=== PATIENT | female | born 1975 | race African-American/Black ===

== ENCOUNTER 2018-03-25 22:12 | Emergency (ER) | payer OTHER ==
--- NOTE | 2018-03-25 22:39 | EDPHYS ---
Physician Documentation [facility] Name: Neida Malhotra Age: 43 yrs Sex: Female : 1975 Arrival Date: 03/25/2018 Time: 22:15 Bed 30 Private MD: ED Physician Reynaldo Foreman HPI: 03/26 00:37 This 43 yrs old Black Female presents to ER via Wheelchair with complaints of Back Pain.snw 00:37 The patient presents with pain that is acute, that is chronic, with no known mechanism snw of injury. The symptoms are located in the low back. Onset: The symptoms/episode began/occurred and became persistent. The pain does not radiate. Associated signs and symptoms: Pertinent positives: spasms. Modifying factors: The patient symptoms are alleviated by nothing. Severity of symptoms: At their worst the symptoms were moderate, severe. The patient has experienced similar episodes in the past, chronically. PCP and Pain mgmt, pt took tramadol and norco without relief. 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 - Social history:: Smoking status: Patient/guardian denies using tobacco. ROS: 03/26 00:34 Constitutional: Negative for fever, chills, and weight loss, Eyes: Negative for injury, snw pain, redness, and discharge, ENT: Negative for injury, pain, and discharge, Neck: Negative for injury, pain, and swelling, Cardiovascular: Negative for chest pain, palpitations, and edema, Respiratory: Negative for shortness of breath, cough, wheezing, and pleuritic chest pain, Abdomen/GI: Negative for abdominal pain, nausea, vomiting, diarrhea, and constipation, : Negative for injury, bleeding, discharge, and swelling, MS/Extremity: Negative for injury and deformity, Skin: Negative for injury, rash, and discoloration, Neuro: Negative for headache, weakness, numbness, tingling, and seizure. Back: Positive for pain at rest, pain with movement. Exam: 00:30 Constitutional: This is a well developed, well nourished patient who is awake, alert, snw and in no acute distress. Head/Face: Normocephalic, atraumatic. Eyes: Pupils equal round and reactive to light, extra-ocular motions intact. Lids and lashes normal. Conjunctiva and sclera are non-icteric and not injected. Cornea within normal limits. Periorbital areas with no swelling, redness, or edema. ENT: Nares patent. No nasal discharge, no septal abnormalities noted. Tympanic membranes are normal and external auditory canals are clear. Oropharynx with no redness, swelling, or masses, exudates, or evidence of obstruction, uvula midline. Mucous membranes moist. Neck: Trachea midline, no thyromegaly or masses palpated, and no cervical lymphadenopathy. Supple, full range of motion without nuchal rigidity, or vertebral point tenderness. No Meningismus. Chest/axilla: Normal chest wall appearance and motion. Nontender with no deformity. No lesions are appreciated. Cardiovascular: Regular rate and rhythm with a normal S1 and S2. No gallops, murmurs, or rubs. Normal PMI, no JVD. No pulse deficits. Respiratory: Lungs have equal breath sounds bilaterally, clear to auscultation and percussion. No rales, rhonchi or wheezes noted. No increased work of breathing, no retractions or nasal flaring. Abdomen/GI: Soft, non-tender, with normal bowel sounds. No distension or tympany. No guarding or rebound. No evidence of tenderness throughout. Skin: Warm, dry with normal turgor. Normal color with no rashes, no lesions, and no evidence of cellulitis. MS/ Extremity: Pulses equal, no cyanosis. Neurovascular intact. Full, normal range of motion. Neuro: Awake and alert, GCS 15, oriented to person, place, time, and situation. Cranial nerves II-XII grossly intact. Motor strength 5/5 in all extremities. Sensory grossly intact. Cerebellar exam normal. Normal gait. 00:30 Back: pain, that is moderate, of the lumbar area, left low back and right low back. 00:30 Neuro: Orientation: is normal. Vital Signs: 03/25 22:32 BP 153 / 107; Pulse 85; Resp 18; Temp 98.9(O); Pulse Ox 98% on R/A; Weight 149.23 kg; lp1 Height 5 ft. 2 in. (157.48 cm); Pain 10/10; 23:24 BP 141 / 97; Pulse 82; Resp 18; Pulse Ox 99% on R/A; lp1 22:32 Body Mass Index 60.17 (149.23 kg, 157.48 cm) lp1 MDM: 22:27 Patient medically screened. snw 03/26 00:35 Data reviewed: vital signs, nurses notes. Data interpreted: Pulse oximetry: on room air snw is 99 %. Interpretation: normal. Counseling: I had a detailed discussion with the patient and/or guardian regarding: the historical points, exam findings, and any diagnostic results supporting the discharge/admit diagnosis, the presence of at least one elevated blood pressure reading (>120/80) during this emergency department visit, the need for outpatient follow up, to return to the emergency department if symptoms worsen or persist or if there are any questions or concerns that arise at home. Special discussion: Based on the history and exam findings, there is no indication for further emergent testing or inpatient evaluation. I discussed with the patient/guardian the need to see the primary care provider for further evaluation of the symptoms. Administered Medications: 03/25 22:57 Drug: Decadron 10 mg Route: IM; Site: right deltoid; lp1 23:25 Follow up: Response: No adverse reaction lp1 Disposition: 03/26 14:30 Co-signature as Attending Physician, Reynaldo Foreman MD I agree with the assessment and pardeep plan of care. Disposition: 03/25/18 22:39 Discharged to Home. Impression: Low back pain. - Condition is Stable. - Discharge Instructions: Back Pain, Adult, Hypertension, Musculoskeletal Pain, Back Exercises, [id number], Cryotherapy, Heat Therapy. - Medication Reconciliation Form, Thank You Letter, Antibiotic Education, Prescription Opioid Use form. - Follow up: Private Physician; When: 1 - 2 days; Reason: Recheck today's complaints, Continuance of care, Re-evaluation by your physician. Follow up: Emergency Department; When: As needed; Reason: Worsening of condition. Signatures: Reynaldo Foreman MD MD cha Therrien, Shelly, YARN SORTER-C YARN SORTER-Csnw Luz Bowie, RN RN lp1
--- NOTE | 2018-03-25 22:39 | ER ---
Nurse's Notes [facility] Name: Neida Malhotra Age: 43 yrs Sex: Female : 1975 Arrival Date: 03/25/2018 Time: 22:15 Bed 30 Private MD: Diagnosis: Low back pain Presentation: 03/25 22:30 Presenting complaint: Patient states: Back pain x2 days, worsening on movement; Seen at [facility] 2 days ago and discharged with antibiotics for beginning of UTI. Transition of care: patient was not received from another setting of care. Onset of symptoms was March 23, 2018. Initial Sepsis Screen: Does the patient meet any 2 criteria? No. Patient's initial sepsis screen is negative. Does the patient have a suspected source of infection? No. Patient's initial sepsis screen is negative. Care prior to arrival: None. 22:30 Method Of Arrival: Wheelchair lp1 22:30 Acuity: AIDAN 4 lp1 Triage Assessment: 22:35 General: Appears uncomfortable, Behavior is cooperative. Pain: Complains of pain in lp1 back Pain currently is 10 out of 10 on a pain scale. Pain began 2-3 days ago. Is intermittent, chronic, Aggravated by increased activity, Noted to be grimacing, moaning. EENT: No signs and/or symptoms were reported regarding the EENT system. Neuro: Level of Consciousness is awake, alert, obeys commands. Cardiovascular: Patient's skin is warm and dry. Respiratory: Respiratory effort is even, unlabored. GI: Abdomen is obese. : Denies burning with urination, discharge, urinary frequency. Derm: Skin is intact, Skin is dry, Skin is normal. Musculoskeletal: Circulation, motion, and sensation intact. 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 - Social history:: Smoking status: Patient/guardian denies using tobacco. Screenin:36 Abuse screen: Denies threats or abuse. Denies injuries from another. Nutritional lp1 screening: No deficits noted. Tuberculosis screening: No symptoms or risk factors identified. Fall Risk None identified. Assessment: 22:36 Reassessment: See Triage assessment. lp1 Vital Signs: 22:32 BP 153 / 107; Pulse 85; Resp 18; Temp 98.9(O); Pulse Ox 98% on R/A; Weight 149.23 kg; lp1 Height 5 ft. 2 in. (157.48 cm); Pain 10/10; 23:24 BP 141 / 97; Pulse 82; Resp 18; Pulse Ox 99% on R/A; lp1 22:32 Body Mass Index 60.17 (149.23 kg, 157.48 cm) lp1 ED Course: 22:15 Patient arrived in ED. al2 22:26 Valerie Lopez FNP-C [facility]. snw 22:26 Reynaldo Foreman MD is Attending Physician. snw 22:30 Luz Bowie, ALEX is Primary Nurse. lp1 22:32 Triage completed. lp1 22:32 Arm band placed on left wrist. lp1 22:36 Patient has correct armband on for positive identification. Pulse ox on. NIBP on. lp1 23:25 No provider procedures requiring assistance completed. Patient did not have IV access lp1 during this emergency room visit. Administered Medications: 22:57 Drug: Decadron 10 mg Route: IM; Site: right deltoid; lp1 23:25 Follow up: Response: No adverse reaction lp1 Outcome: 22:39 Discharge ordered by . snw 23:25 Discharged to home ambulatory. lp1 23:25 Condition: good 23:25 Discharge instructions given to patient, Instructed on discharge instructions, follow up and referral plans. Demonstrated understanding of instructions, follow-up care. 23:25 Patient left the ED. lp1 Signatures: Valerie Lopez FNP-C REMEDIATION BIOANALYTICS CONSULTANT-Csnw Bowie, Luz, RN RN lp1 Selena Fofana al2
[2018-03-25] MEDS ORDERED: DEXAMETHASONE 10 MG/ML VIAL ONE (22:52)
== END 2018-03-25 23:25 | disposition home or self-care (01) ==
LOC: ER 22:12
DX: M54.5 Low back pain (principal); I10 Essential (primary) hypertension; E11.9 Type 2 diabetes mellitus without complications; F41.9 Anxiety disorder, unspecified; Z88.0 Allergy status to penicillin
CPT/HCPCS: 96372; 99283; J1100

== ENCOUNTER 2018-12-27 22:39 | Emergency (ER) | payer OTHER ==
--- OUTSIDE RECORDS SUMMARY | 2018-12-27 22:41 | XMS REPORT ---
:1975 [facility] Address [address] [place] [address] [place] [id number] Care Team Providers Name Role Phone Unavailable Unavailable Unavailable Problems This patient has no known problems. Allergies, Adverse Reactions, Alerts This patient has no known allergies or adverse reactions. Medications This patient has no known medications.
--- OUTSIDE RECORDS SUMMARY | 2018-12-27 22:41 | XMS REPORT | Clinical Summary ---
:1975 Author Organization [facility] Address [address] [place] [address] Care Team Providers Name Role Phone Asked, No Pcp Primary Care Provider Unavailable Allergies Active Allergy Reactions Severity Noted Date Comments Penicillins Hives 03/29/2018 Medications Medication Sig Dispensed Refills Start Date End Date Status traMADol (ULTRAM) 50 Take 50 mg by 0 Active mg tablet mouth every 6 (six) hours as needed for moderate pain. pantoprazole Take 1 tablet 30 tablet 0 03/29/2018 04/28/2018 (PROTONIX) 20 MG EC (20 mg total) by tablet mouth daily for 30 days. ondansetron (ZOFRAN) Take 1 tablet (4 20 tablet 0 03/29/2018 04/28/2018 4 MG tablet mg total) by mouth every 8 (eight) hours as needed for nausea or vomiting for up to 30 days. Active Problems Not on file Encounters Date Type Specialty Care Team Description 03/29/2018 Emergency Emergency Medicine Eyal Raya DO Peptic ulcer disease (Primary Dx) after 12/26/2017 Social History Tobacco Use Types Packs/Day Years Used Date Never Smoker Smokeless Tobacco: Never Used Sex Assigned at Date Recorded Not on file Job Start Date Occupation Industry Not on file Not on file Not on file Travel History Travel Start Travel End No recent travel history available. Last Filed Vital Signs Vital Sign Reading Time Taken Blood Pressure 119/62 03/29/2018 10:19 PM CDT Pulse 66 03/29/2018 10:19 PM CDT Temperature - - Respiratory Rate 18 03/29/2018 10:19 PM CDT Oxygen Saturation 98% 03/29/2018 10:19 PM CDT Inhaled Oxygen Concentration - - Weight - - Height 157.5 cm (5' 2") 03/29/2018 7:55 PM CDT Body Mass Index - - Plan of Treatment Health Maintenance Due Date Last Done Comments CERVICAL CANCER SCREENING 02/01/1996 INFLUENZA VACCINE 06/30/2018 Procedures Procedure Name Priority Date/Time Associated Comments Diagnosis URINALYSIS STAT 03/29/2018 9:16 Results for this PM CDT procedure are in the results section. US GALLBLADDER STAT 03/29/2018 9:08 Results for this PM CDT procedure are in the results section. ZZESTIMATED GFR STAT 03/29/2018 8:40 Results for this PM CDT procedure are in the results section. AMYLASE LEVEL STAT 03/29/2018 8:40 Results for this PM CDT procedure are in the results section. LACTIC ACID, I-STAT STAT 03/29/2018 8:40 Results for this PM CDT procedure are in the results section. COMPREHENSIVE STAT 03/29/2018 8:40 Results for this METABOLIC PANEL PM CDT procedure are in the results section. HC COMPLETE BLD COUNT STAT 03/29/2018 8:40 Results for this W/AUTO DIFF PM CDT procedure are in the results section. after 12/26/2017 Results Urinalysis (03/29/2018 9:16 PM CDT) Glucose, UA Negative Negative DEPARTMENT OF PATHOLOGY AND GENOMIC MEDICINE, [facility] Bilirubin, UA Negative Negative DEPARTMENT OF PATHOLOGY AND GENOMIC MEDICINE, [facility] Ketones, UA Negative Negative [facility] Specific gravity, UA 1.020 1.001 - 1.035 [facility] Blood, UA Large (A) Negative DEPARTMENT OF PATHOLOGY AND GENOMIC MEDICINE, [facility] pH, UA 6.5 5.0 - 8.5 DEPARTMENT OF PATHOLOGY AND GENOMIC MEDICINE, [facility] Protein, UA Negative Negative DEPARTMENT OF PATHOLOGY AND GENOMIC MEDICINE, [facility] Urobilinogen, UA <2.0 <2.0 DEPARTMENT OF PATHOLOGY AND GENOMIC MEDICINE, [facility] Nitrite, UA Negative Negative [facility] Leukocyte esterase, UA Trace (A) Negative DEPARTMENT OF PATHOLOGY AND GENOMIC MEDICINE, [facility] Color, UA Yellow DEPARTMENT OF PATHOLOGY AND GENOMIC MEDICINE, [facility] Appearance, UA Clear DEPARTMENT OF PATHOLOGY AND GENOMIC MEDICINE, [facility] Specimen Urine Performing Organization Address [facility]/Zipcode Phone Number DEPARTMENT OF PATHOLOGY AND [address] [place] [address] GENOMIC MEDICINE, [facility] US Gallbladder (03/29/2018 9:08 PM CDT) Narrative Performed At EXAMINATION:US GALLBLADDER [facility] CLINICAL HISTORY:Cholecystitis COMPARISON:None. FINDINGS: Gallbladder: The gallbladder is without evidence of calculi. The gallbladder wall is not thickened and there is no pericholecystic fluid. Positive sonographic Smith sign noted by instrumentation and controls technician. CBD:4.8 mm, within normal limits. Portal vein: The portal vein demonstrates patency. The portal vein measures 1.2 cm. Incidental hepatic steatosis with focal sparing adjacent to the gallbladder. IMPRESSION: 1. Positive sonographic Smith sign noted by instrumentation and controls technician. However, no gallstones are visualized and there is no other sonographic evidence of acute cholecystitis. 2. Hepatic steatosis. [facility]-[id number] Procedure Note Interface, Radiology Results Incoming - 03/29/2018 9:13 PM CDT EXAMINATION: US GALLBLADDER CLINICAL HISTORY: Cholecystitis COMPARISON: None. FINDINGS: Gallbladder: The gallbladder is without evidence of calculi. The gallbladder wall is not thickened and there is no pericholecystic fluid. Positive sonographic Smith sign noted by instrumentation and controls technician. CBD: 4.8 mm, within normal limits. Portal vein: The portal vein demonstrates patency. The portal vein measures 1.2 cm. Incidental hepatic steatosis with focal sparing adjacent to the gallbladder. IMPRESSION: 1. Positive sonographic Smith sign noted by instrumentation and controls technician. However, no gallstones are visualized and there is no other sonographic evidence of acute cholecystitis. 2. Hepatic steatosis. [facility]-[id number] Performing Organization Address City/[facility]/Zipcode Phone Number [facility] [address] [place] [address] Estimated GFR (03/29/2018 8:40 PM CDT) GFR Non Af Amer 68 mL/min/1.73 m2 [facility] GFR Af Amer 83 mL/min/1.73 m2 DEPARTMENT OF PATHOLOGY Comment: AND GENOMIC MEDICINE, Chronic kidney disease: <60 mL/min/1.73m2 [facility] Kidney failure: <15 mL/min/1.73m2 CENTER The estimated GFR is calculated from the IDMS-traceable Modification of Diet in Renal Disease Equation. The accuracy of the calculation is poor when the creatinine is normal. Calculated values >90 mL/min/1.73m2 are not reported. This equation has not been validated in children (<18 years), women, the elderly (>70 years), or ethnic groups other than Caucasians and Americans. Specimen Plasma specimen Performing Organization Address City/State/Zipcode Phone Number DEPARTMENT OF PATHOLOGY AND [address] [place] [address] Lactic acid, I-Stat (03/29/2018 8:40 PM CDT) Lactic acid, I-Stat 1.6 0.5 - 2.2 mmol/L [facility] Specimen Plasma specimen Performing Organization Address City/[facility] Mex[facility]ode Phone Number DEPARTMENT OF PATHOLOGY AND [address] [place] [address] CBC with platelet and differential (03/29/2018 8:40 PM CDT) WBC 9.31 4.50 - 11.00 k/uL [facility] RBC 4.38 4.20 - 5.50 m/uL [facility] HGB 12.3 12.0 - 16.0 g/dL [facility] HCT 37.9 37.0 - 47.0 % [facility] MCV 86.5 82.0 - 100.0 fL [facility] MCH 28.1 27.0 - 34.0 pg [facility] MCHC 32.5 31.0 - 37.0 g/dL [facility] RDW - SD 38.9 37.0 - 55.0 fL [facility] MPV 9.4 8.8 - 13.2 fL [facility] Platelet count 308 150 - 400 k/uL [facility] Neutrophils 54.0 39.0 - 69.0 % [facility] Lymphocytes 38.3 25.0 - 45.0 % [facility] Monocytes 6.4 0.0 - 10.0 % [facility] Eosinophils 1.0 0.0 - 5.0 % [facility] Basophils 0.3 0.0 - 1.0 % [facility] Specimen Blood Performing Organization Address City/[facility]/Zipcode Phone Number DEPARTMENT OF PATHOLOGY AND [address] [place] [address] Amylase level (03/29/2018 8:40 PM CDT) Amylase 37 14 - 97 U/L [facility] Specimen Plasma specimen Performing Organization Address City/[facility] Mex[facility]ode Phone Number DEPARTMENT OF PATHOLOGY AND [address] [place] [address] Comprehensive metabolic panel (03/29/2018 8:40 PM CDT) Sodium 137 128 - 145 mEq/L [facility] Potassium 4.0 3.6 - 5.1 mEq/L [facility] CO2 32 18 - 33 mEq/L [facility] Chloride 102 98 - 108 mEq/L [facility] Glucose 102 73 - 118 mg/dL [facility] Calcium 8.9 8.0 - 10.3 mg/dL [facility] BUN 11 7 - 22 mg/dL [facility] Creatinine 0.9 0.6 - 1.2 mg/dL [facility] Alkaline phosphatase 63 42 - 141 U/L [facility] ALT 27 10 - 47 U/L [facility] AST 31 11 - 38 U/L [facility] Total bilirubin 0.9 0.2 - 1.6 mg/dL [facility] Albumin 3.6 3.3 - 5.5 g/dL [facility] Protein 7.9 6.4 - 8.1 g/dL [facility] Anion gap 3 (L) 7 - 15 mEq/L DEPARTMENT OF Comment: PATHOLOGY AND GENOMIC Starting from February , anion gap calculation [facility] no longer incorporates potassium. Please note the change. [facility] A/G ratio 0.8 0.7 - 3.8 [facility] Specimen Plasma specimen Performing Organization Address City/State/[facility] Mexicocode Phone Number DEPARTMENT OF PATHOLOGY AND [address] [place] [phone] [facility] after 12/26/2017 Insurance Payer Benefit Plan / Group Subscriber ID Type Phone Address [facility] xxxxxxxx PPO Advance Directives Patient has advance care planning documents on file. For more information, please contact:Manuel Quintanilla[address] [place] [address]
[2018-12-28 00:26] LABS: Absolute Monocytes 0.5 K/uL (0.1-1.3); Absolute Neutrophil 4.7 K/uL (1.8-8.0); Basophils % 0.3 % (0-1.3); Eosinophils % 0.9 % (0-4.4); Hematocrit 36.4 % (36.0-45.0); Lymphocytes % 36.5 % (15.3-44.8); MPV 8.2 fL (7.6-11.3); Monocytes % 5.6 % (3.3-12.3); RBC Red Blood Cell Count 4.34 M/uL (3.86-4.86)
[2018-12-28] MEDS ORDERED: MORPHINE 4 MG/ML SYR ONE (00:29)
[2018-12-28] MEDS ORDERED: ONDANSETRON 4 MG/2 ML VIAL ONE (00:29)
[2018-12-28 00:36] LABS: Albumin 3.6 g/dL (3.4-5.0); Bilirubin Direct 0.2 mg/dL (0-0.2); Bilirubin Total 0.8 mg/dL (0.2-1.0); Potassium 3.9 mmol/L (3.5-5.1)
--- NOTE | 2018-12-28 02:09 | EDPHYS ---
Physician Documentation [facility] Name: Neida Malhotra Age: 43 yrs Sex: Female : 1975 Arrival Date: 12/27/2018 Time: 22:39 Bed 27 Private MD: Maninder Whitehead ED Physician Pedro Lopez HPI: 12/27 23:50 This 43 yrs old Black Female presents to ER via Wheelchair with complaints of Right pm1 flank pain. 23:50 The patient presents with pain that is acute, with no known mechanism of injury. The pm1 symptoms are located in the right mid back. 23:50 Onset: The symptoms/episode began/occurred yesterday. The pain does not radiate. pm1 Associated signs and symptoms: Pertinent negatives: abdominal pain, chest pain, dysuria, fever, headache, nausea, numbness, vomiting, weakness. The problem was sustained from unknown cause. Modifying factors: The patient symptoms are alleviated by nothing, the patient symptoms are aggravated by bending, movement. Severity of symptoms: in the emergency department the symptoms are actually worse. The patient has been recently seen by a physician: Seen at [facility] ER with the same complaints earlier today. Negative lab work, ECG, CT chest, and echocardiogram. Patient discharged home. 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 ak1 Historical: - Allergies: 22:55 PENICILLINS; ak1 22:55 Flexeril; ak1 - Home Meds: 22:55 allopurinol 300 mg Oral tab 1 tab 2 times per day [Active]; losartan oral oral ak1 [Active]; Lasix Oral [Active]; metformin 1,000 mg Oral tab 1 tab 2 times per day [Active]; Colchicine Oral [Active]; atorvastatin oral oral [Active]; [place] 5-325 mg Oral tab 1 tab every 4-6 hours [Active]; Xanax Oral [Active]; - PMHx: 22:55 Anxiety; Asthma; Chronic lumbar disc pain; Diabetes - NIDDM; Gout; Hypertension; ak1 - PSHx: 22:55 ; ak1 - Immunization history:: Adult Immunizations unknown. - Social history:: Smoking status: Patient/guardian denies using tobacco. - Ebola Screening: : No symptoms or risks identified at this time. ROS: 23:50 Constitutional: Negative for fever, chills, and weight loss, Eyes: Negative for injury, pm1 pain, redness, and discharge, ENT: Negative for injury, pain, and discharge, Neck: Negative for injury, pain, and swelling, Cardiovascular: Negative for chest pain, palpitations, and edema, Respiratory: Negative for shortness of breath, cough, wheezing, and pleuritic chest pain, Abdomen/GI: Negative for abdominal pain, nausea, vomiting, diarrhea, and constipation. 23:50 : Negative for injury, bleeding, discharge, and swelling, MS/Extremity: Negative for injury and deformity, Skin: Negative for injury, rash, and discoloration, Neuro: Negative for headache, weakness, numbness, tingling, and seizure. 23:50 Back: Positive for pain with movement, flank pain, on the right, Negative for decreased range of motion, radiated pain. Exam: 23:50 Constitutional: This is a well developed, well nourished patient who is awake, alert, pm1 and in no acute distress. Head/Face: Normocephalic, atraumatic. Eyes: Pupils equal round and reactive to light, extra-ocular motions intact. Lids and lashes normal. Conjunctiva and sclera are non-icteric and not injected. Cornea within normal limits. Periorbital areas with no swelling, redness, or edema. ENT: Nares patent. No nasal discharge, no septal abnormalities noted. Tympanic membranes are normal and external auditory canals are clear. Oropharynx with no redness, swelling, or masses, exudates, or evidence of obstruction, uvula midline. Mucous membranes moist. Neck: Trachea midline, no thyromegaly or masses palpated, and no cervical lymphadenopathy. Supple, full range of motion without nuchal rigidity, or vertebral point tenderness. No Meningismus. Chest/axilla: Normal chest wall appearance and motion. Nontender with no deformity. No lesions are appreciated. Cardiovascular: Regular rate and rhythm with a normal S1 and S2. No gallops, murmurs, or rubs. Normal PMI, no JVD. No pulse deficits. Respiratory: Lungs have equal breath sounds bilaterally, clear to auscultation and percussion. No rales, rhonchi or wheezes noted. No increased work of breathing, no retractions or nasal flaring. 23:50 Skin: Warm, dry with normal turgor. Normal color with no rashes, no lesions, and no evidence of cellulitis. MS/ Extremity: Pulses equal, no cyanosis. Neurovascular intact. Full, normal range of motion. 23:50 Abdomen/GI: Inspection: obese Bowel sounds: normal, Palpation: abdomen is soft and non-tender, in all quadrants, mass, is not appreciated, rebound tenderness, is not appreciated. 23:50 Back: pain, that is mild, of the right mid back, normal spinal alignment noted, CVA tenderness, is absent, vertebral tenderness, is not appreciated. 23:50 Neuro: Orientation: is normal, Mentation: is normal, Motor: is normal, moves all fours, Sensation: is normal, no obvious gross deficits, Gait: is steady, at a normal pace, without difficulty. Vital Signs: 22:51 BP 117 / 65; Pulse 69; Resp 16; Temp 98.; Pulse Ox 97% on R/A; Weight 149.69 kg (R); ak1 Height 5 ft. 2 in. (157.48 cm) (R); Pain 9/10; 12/28 01:07 BP 109 / 72; Pulse 68; Resp 18; Pulse Ox 100% on R/A; Pain 3/10; mg2 02:20 BP 115 / 68; Pulse 69; Resp 17 S; Pulse Ox 97% on R/A; jd3 12/27 22:51 Body Mass Index 60.36 (149.69 kg, 157.48 cm) ak1 MDM: 12/27 23:22 Patient medically screened. pm1 12/28 02:02 Data reviewed: vital signs. Data interpreted: Pulse oximetry: on room air is 100 %. pm1 Interpretation: normal. Counseling: I had a detailed discussion with the patient and/or guardian regarding: the historical points, exam findings, and any diagnostic results supporting the discharge/admit diagnosis, lab results, radiology results, the need for outpatient follow up, to return to the emergency department if symptoms worsen or persist or if there are any questions or concerns that arise at home. 12/27 23:54 Order name: Basic Metabolic Panel; Complete Time: 00:38 pm1 12/27 23:54 Order name: CBC with Diff; Complete Time: 00:38 pm1 12/27 23:54 Order name: Creatinine for Radiology; Complete Time: 00:38 pm1 28 23:54 Order name: Hepatic Function; Complete Time: 00:38 pm12/27 23:54 Order name: Lipase; Complete Time: 00:38 pm12/27 23:54 Order name: CT Stone Protocol pm12/27 23:54 Order name: IV Saline Lock; Complete Time: 00:00 pm1 12/27 23:54 Order name: Labs collected and sent; Complete Time: 00:01 pm1 Administered Medications: 00:28 Drug: Zofran 4 mg Route: IVP; Site: left antecubital; mg2 01:23 Follow up: Response: No adverse reaction; Marked relief of symptoms mg2 00:29 Drug: morphine 4 mg Route: IVP; Site: left antecubital; mg2 :23 Follow up: Response: No adverse reaction; Marked relief of symptoms mg2 Disposition: 05:42 Co-signature as Attending Physician, Pedro Lopez MD I agree with the assessment and tw4 plan of care. Disposition: 12/28/18 02:08 Discharged to Home. Impression: Right flank pain. - Condition is Stable. - Discharge Instructions: Back Pain, Adult. - Prescriptions for Tylenol- Codeine #3 300-30 mg Oral Tablet - take 2 tablets by ORAL route every 6 hours As needed; 20 tablet. - Medication Reconciliation Form, Thank You Letter, Antibiotic Education, Prescription Opioid Use form. - Follow up: Emergency Department; When: As needed; Reason: Worsening of condition. Follow up: Private Physician; When: 2 - 3 days; Reason: Recheck today's complaints, Continuance of care, Re-evaluation by your physician. - Problem is new. - Symptoms have improved. Signatures: Dispatcher [employer] EDLA Gena Juan RN RN ak1 Deep Urrutia NP VEGETABLE FARMING SUPERVISOR pm1 Bruce Dumont RN RN jd3 Pedro Lopez MD MD tw4 Kamaljit Vaughan RN RN mg2 Corrections: (The following items were deleted from the chart) 02:21 02:08 12/28/2018 02:08 Discharged to Home. Impression: Right flank pain. Condition is jd3 Stable. Forms are Medication Reconciliation Form, Thank You Letter, Antibiotic Education, Prescription Opioid Use. Follow up: Emergency Department; When: As needed; Reason: Worsening of condition. Follow up: Private Physician; When: 2 - 3 days; Reason: Recheck today's complaints, Continuance of care, Re-evaluation by your physician. Problem is new. Symptoms have improved. pm1
--- NOTE | 2018-12-28 02:09 | ER ---
Nurse's Notes [facility] Name: Neida Malhotra Age: 43 yrs Sex: Female : 1975 Arrival Date: 12/27/2018 Time: 22:39 Bed 27 Private MD: Maninder Whitehead Diagnosis: Right flank pain Presentation: 12/27 22:51 Presenting complaint: Patient states: mid to upper back pain, right rib pain started ak1 yesterday. pt seen at [facility], discharged. pt c/o increased pain. Transition of care: patient was not received from another setting of care. Onset of symptoms was December 26, 2018. Risk Assessment: Do you want to hurt yourself or someone else? Patient reports no desire to harm self or others. Initial Sepsis Screen: Does the patient meet any 2 criteria? No. Patient's initial sepsis screen is negative. Does the patient have a suspected source of infection? No. Patient's initial sepsis screen is negative. Care prior to arrival: None. 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 ak1 Historical: - Allergies: 22:55 PENICILLINS; ak1 22:55 Flexeril; ak1 - Home Meds: 22:55 allopurinol 300 mg Oral tab 1 tab 2 times per day [Active]; losartan oral oral ak1 [Active]; Lasix Oral [Active]; metformin 1,000 mg Oral tab 1 tab 2 times per day [Active]; Colchicine Oral [Active]; atorvastatin oral oral [Active]; [place] 5-325 mg Oral tab 1 tab every 4-6 hours [Active]; Xanax Oral [Active]; - PMHx: 22:55 Anxiety; Asthma; Chronic lumbar disc pain; Diabetes - NIDDM; Gout; Hypertension; ak1 - PSHx: 22:55 ; ak1 - Immunization history:: Adult Immunizations unknown. - Social history:: Smoking status: Patient/guardian denies using tobacco. - Ebola Screening: : No symptoms or risks identified at this time. Screenin:50 Abuse screen: Denies threats or abuse. Nutritional screening: No deficits noted. tl3 Tuberculosis screening: No symptoms or risk factors identified. Fall Risk None identified. Assessment: 23:50 General: Appears uncomfortable, obese, well groomed, well developed, well nourished, tl3 Behavior is calm, cooperative, appropriate for age. Pain: Complains of pain in back. Neuro: Level of Consciousness is awake, alert, obeys commands, Oriented to person, place, time, situation, Appropriate for age. Cardiovascular: Patient's skin is warm and dry. Respiratory: Airway is patent Respiratory effort is even, unlabored, Respiratory pattern is regular, symmetrical. GI: No signs and/or symptoms were reported involving the gastrointestinal system. : No signs and/or symptoms were reported regarding the genitourinary system. EENT: No signs and/or symptoms were reported regarding the EENT system. Derm: No signs and/or symptoms reported regarding the dermatologic system. Musculoskeletal: No signs and/or symptoms reported regarding the musculoskeletal system. 12/28 02:19 Reassessment: Patient appears in no apparent distress at this time. Patient and/or jd3 family updated on plan of care and expected duration. Pain level reassessed. Patient is alert, oriented x 3, equal unlabored respirations, skin warm/dry/pink. Patient states feeling better. Vital Signs: 12/27 22:51 BP 117 / 65; Pulse 69; Resp 16; Temp 98.; Pulse Ox 97% on R/A; Weight 149.69 kg (R); ak1 Height 5 ft. 2 in. (157.48 cm) (R); Pain 9/10; 12/28 01:07 BP 109 / 72; Pulse 68; Resp 18; Pulse Ox 100% on R/A; Pain 3/10; mg2 02:20 BP 115 / 68; Pulse 69; Resp 17 S; Pulse Ox 97% on R/A; jd3 12/27 22:51 Body Mass Index 60.36 (149.69 kg, 157.48 cm) ak1 ED Course: 12/27 22:39 Patient arrived in ED. am2 22:40 Maninder Whitehead MD is Private Physician. am2 22:51 Arm band placed on Patient placed in an exam room, on a stretcher, on pulse oximetry, ak1 Patient notified of wait time. 22:52 Triage completed. ak1 22:57 Miri Dao RN is Primary Nurse. tl3 23:19 Deep Urrutia [facility] pm1 23:19 Pedro Lopez MD is Attending Physician. pm1 23:50 Patient has correct armband on for positive identification. tl3 23:50 No provider procedures requiring assistance completed. tl3 12/28 00:07 Radiology exam delayed due to test not completed at this time. kw1 00:[address] via stretcher. kw1 00:44 CT Stone Protocol In Process Unspecified. EDMS 00:44 CT completed. Patient tolerated procedure well. Patient moved back from CT. kw1 01:06 Inserted saline lock: 22 gauge in left antecubital area, using aseptic technique. Blood mg2 collected. 02:19 IV discontinued, intact, bleeding controlled, No redness/swelling at site. Pressure jd3 dressing applied. Administered Medications: 00:28 Drug: Zofran 4 mg Route: IVP; Site: left antecubital; mg2 01:23 Follow up: Response: No adverse reaction; Marked relief of symptoms mg2 00:29 Drug: morphine 4 mg Route: IVP; Site: left antecubital; mg2 01:23 Follow up: Response: No adverse reaction; Marked relief of symptoms mg2 Outcome: 02:08 Discharge ordered by MD. pm1 02:19 Discharged to home via wheelchair, with family. jd3 02:19 Condition: stable 02:19 Discharge instructions given to patient, family, Instructed on discharge instructions, follow up and referral plans. medication usage, Demonstrated understanding of instructions, follow-up care, medications, Prescriptions given X 1. 02:21 Patient left the ED. jd3 Signatures: Dispatcher [employer] EDSC Gena Juan RN RN ak1 Deep Urrutia, [employer] WORKER APPRENTICE pm1 Karlie Nance am2 Bruce Dumont RN RN jd3 Evelin Branch kw1 Miri Dao RN RN tl3 Kamaljit Vaughan RN RN mg2
--- NOTE | 2018-12-28 08:15 | RAD REPORT ---
EXAM DESCRIPTION: CT - Stone Protocol - 12/28/2018 1:57 am CLINICAL HISTORY: Flank pain. right flank pain COMPARISON: CT ABD PELVIS W CONTRAST dated 02/14/2015 TECHNIQUE: Axial images were obtained without oral or IV contrast. Lack of contrast limits solid org an and vascular assessment. The [id number] spans the entirety of the system partially obscuring uppermost abdomen and lung bases. Coronal reformatted images were obtained and reviewed. All CT scans are performed using dose optimization technique as appropriate and may include automated exposure control or mA/KV adjustment according to patient size. FINDINGS: The lower lung eagle are clear. Diffuse fatty liver. The spleen is unremarkable. The pancreas and adrenal glands are normal. No patho logic lymphadenopathy in the abdomen or pelvis. No urinary tract stones or obstructive uropathy. No bowel obstruction, free air, free fluid or abscess. Diverticulosis of the sigmoid colon without di verticulitis. Normal appendix noted. Lower lumbar degenerate changes are present. IMPRESSION: No urinary tract stones or obstructive uropathy. Fatty liver.
== END 2018-12-28 02:21 | disposition home or self-care (01) ==
LOC: ER 22:39
DX: R10.9 Unspecified abdominal pain (principal); I10 Essential (primary) hypertension; E11.9 Type 2 diabetes mellitus without complications; F41.9 Anxiety disorder, unspecified; Z88.0 Allergy status to penicillin; Z88.8 Allergy status to other drugs, medicaments and biological substances
CPT/HCPCS: 36415; 74176; 76377; 80048; 80076; 83690; 85025; 96374; 96375; 99284; J2405

== ENCOUNTER 2019-10-12 18:32 | Emergency (ER) | payer OTHER ==
--- OUTSIDE RECORDS SUMMARY | 2019-10-12 18:34 | XMS REPORT ---
:1975 [facility] Address [address] [place] [address] Dr. Rangel [address] [place] [id number] Care Team Providers Name Role Phone Unavailable Unavailable Unavailable Problems This patient has no known problems. Allergies, Adverse Reactions, Alerts This patient has no known allergies or adverse reactions. Medications This patient has no known medications.
[2019-10-12] MEDS ORDERED: ONDANSETRON 4 MG/2 ML VIAL ONE (20:39)
[2019-10-12] MEDS ORDERED: MORPHINE 4 MG/ML SYR ONE (20:39)
[2019-10-12] MEDS ORDERED: NA CHLORIDE 0.9% 1,000 ML ONE (20:39)
[2019-10-12] MEDS ORDERED: FAMOTIDINE 20 MG/2 ML VIAL IV ONE (20:39)
[2019-10-12 20:59] LABS: Absolute Lymphocytes (CBC) 3.6 K/uL (0.7-4.9); Basophils % 0.5 % (0-1.3); Hematocrit 39.5 % (36.0-45.0); Lymphocytes % 39.5 % (15.3-44.8); MPV 8.3 fL (7.6-11.3); RBC Red Blood Cell Count 4.65 M/uL (3.86-4.86)
[2019-10-12 21:16] LABS: ALT/SGPT 66 U/L (12-78); AST/SGOT 53 U/L (15-37); Albumin 4.2 g/dL (3.4-5.0); Alkaline Phosphatase 80 U/L (45-117); BUN Blood Urea Nitrogen 13 mg/dL (7-18); Bicarbonate 28 mmol/L (21-32); Bilirubin Direct 0.2 mg/dL (0-0.2); Glucose Level 114 mg/dL (74-106); Lipase 67 U/L (73-393); Magnesium 2.3 mg/dL (1.8-2.4); NT PRO-BNP 121 pg/mL (<125); Potassium 3.7 mmol/L (3.5-5.1); Sodium Level 139 mmol/L (136-145); Troponin (Emerg Dept Use Only) < 0.02 ng/mL (0.0-0.045)
[2019-10-12 21:18] LABS: Protime INR 1.1
[2019-10-12] MEDS ORDERED: FENTANYL CITR 100 MCG/2 ML ONE (21:57)
[2019-10-12 22:03] LABS: Urine Blood TRACE (NEG); Urine Glucose NEGATIVE (NEG); Urine Protein NEGATIVE (NEG); Urine Specific Gravity 1.025 (1.005-1.030); Urine pH 5.5 (5.0-7.0)
[2019-10-12 22:19] LABS: Urine Bacteria 20-50 /HPF (<20); Urine Culture Reflex Order REFLEXED; Urine Mucus 1+ /HPF (NONE SEEN); Urine RBC <5 /HPF (NONE SEEN)
--- NOTE | 2019-10-12 22:55 | ER ---
Nurse's Notes [facility] Name: Neida Malhotra Age: 44 yrs Sex: Female : 1975 Arrival Date: 10/12/2019 Time: 18:35 Bed 15 Private MD: Maninder Whitehead Diagnosis: Abdominal tenderness;Type 2 diabetes mellitus;Obesity, unspecified;Urinary tract infection, site not specified Presentation: 10/12 18:59 Presenting complaint: Child states: Right flank pain and pain with cough x 1 week. On hb Bactrim for kidney infection. Transition of care: patient was not received from another setting of care. Onset of symptoms was October 06, 2019. Risk Assessment: Do you want to hurt yourself or someone else? Patient reports no desire to harm self or others. Care prior to arrival: None. 18:59 Method Of Arrival: Ambulatory hb 18:59 Acuity: AIDAN 3 hb Historical: - Allergies: 19:01 PENICILLINS; hb 19:01 Flexeril; hb - PMHx: 19:01 Anxiety; Gout; Diabetes - NIDDM; Chronic lumbar disc pain; Asthma; Hypertension; hb - PSHx: 19:01 ; hb - Immunization history:: Adult Immunizations up to date. - Social history:: Smoking status: Patient/guardian denies using tobacco. - Ebola Screening: : No symptoms or risks identified at this time. Screenin:30 Abuse screen: Denies threats or abuse. Denies injuries from another. Nutritional aa1 screening: No deficits noted. Tuberculosis screening: No symptoms or risk factors identified. Fall Risk None identified. Assessment: 19:30 General: Appears in no apparent distress. uncomfortable, obese, Behavior is calm, aa1 cooperative, appropriate for age. Pain: Complains of pain in right upper quadrant and epigastric area and right mid back Pain currently is 10 out of 10 on a pain scale. Quality of pain is described as stabbing, Pain began 1 week ago]. Neuro: Level of Consciousness is awake, alert, obeys commands, Oriented to person, place, time, situation, Moves all extremities. Full function Gait is steady, Speech is normal. Cardiovascular: Denies chest pain, diaphoresis, palpitations, shortness of breath, Heart tones S1 S2 present Rhythm is regular. Respiratory: Reports cough that is non-productive, Airway is patent Respiratory effort is even, unlabored, Respiratory pattern is regular, symmetrical, Breath sounds are clear bilaterally. GI: Abdomen is non-distended, Bowel sounds present X 4 quads. Abd is soft X 4 quads Reports upper abdominal pain, epigastric pain, Patient currently denies diarrhea, nausea, vomiting. : Reports pain in right flank(s), Denies burning with urination, inability to void. EENT: No signs and/or symptoms were reported regarding the EENT system. Derm: Skin is intact, is healthy with good turgor, Skin is pink, warm \T\ dry. Musculoskeletal: Circulation, motion, and sensation intact. Capillary refill < 3 seconds. 20:30 Reassessment: Patient appears in no apparent distress at this time. Patient and/or aa1 family updated on plan of care and expected duration. Pain level reassessed. Patient is alert, oriented x 3, equal unlabored respirations, skin warm/dry/pink. Awaiting labs and testing. 21:30 Reassessment: Patient appears in no apparent distress at this time. Patient and/or aa1 family updated on plan of care and expected duration. Pain level reassessed. Patient is alert, oriented x 3, equal unlabored respirations, skin warm/dry/pink. Awaiting CT scan. 22:30 Reassessment: Patient appears in no apparent distress at this time. Patient and/or aa1 family updated on plan of care and expected duration. Pain level reassessed. Patient is alert, oriented x 3, equal unlabored respirations, skin warm/dry/pink. Awaiting CT results. 23:14 Reassessment: Patient appears in no apparent distress at this time. Patient is alert, aa1 oriented x 3, equal unlabored respirations, skin warm/dry/pink. Discussed d/c \T\ f/u instructions with pt; denies questions or concerns at this time. Ambulatory to lobby with steady gait. Patient states feeling better. Vital Signs: 19:01 BP 149 / 89; Pulse 90; Resp 20; Temp 97.9; Pulse Ox 100% on R/A; Weight 154.22 kg; hb Height 5 ft. 2 in. (157.48 cm); Pain 10/10; 21:10 BP 138 / 97; Pulse 72; Resp 20; Pulse Ox 100% on R/A; Pain 10/10; aa1 22:15 BP 142 / 88; Pulse 75; Resp 18; Pulse Ox 99% on R/A; Pain 8/10; aa1 23:00 BP 133 / 81; Pulse 76; Resp 18; Temp 98.1; Pulse Ox 100% on R/A; Pain 2/10; aa1 19:01 Body Mass Index 62.19 (154.22 kg, 157.48 cm) hb ED Course: 18:35 Patient arrived in ED. mr 18:36 Maninder Whitehead MD is Private Physician. mr 19:01 Triage completed. hb 19:01 Arm band placed on. hb 19:17 Reynaldo Foreman MD is Attending Physician. pardeep 19:30 Patient has correct armband on for positive identification. Placed in gown. Bed in low aa1 position. Call light in reach. Side rails up X2. school bus monitor on. Pulse ox on. NIBP on. Warm blanket given. 20:00 Inserted saline lock: 20 gauge in left antecubital area, using aseptic technique. Blood ds4 collected. 20:35 Radiology exam delayed due to lab results not completed at this time. (BUN/Creatinine). jj2 20:35 Sally Piper, RN is Primary Nurse. aa1 20:52 US Abdomen Limited In Process Unspecified. EDMS 21:23 Radiology exam delayed due to test not completed at this time. vm2 21:30 XRAY Chest (1 view) In Process Unspecified. EDMS 21:58 CT Abd/Pelvis - IV Contrast Only In Process Unspecified. EDMS 22:54 Maninder Whitehead MD is Referral Physician. pardeep 23:14 No provider procedures requiring assistance completed. IV discontinued, intact, aa1 bleeding controlled, No redness/swelling at site. Pressure dressing applied. Administered Medications: 20:45 Drug: NS 0.9% 1000 ml Route: IV; Rate: 1 bolus; Site: left antecubital; aa1 21:15 Follow up: IV Status: Completed infusion; IV Intake: 1000ml aa1 20:45 Drug: Pepcid 20 mg Route: IVP; Site: left antecubital; aa1 21:45 Follow up: Response: No adverse reaction aa1 20:46 Drug: Zofran 4 mg Route: IVP; Site: left antecubital; aa1 21:46 Follow up: Response: No adverse reaction aa1 20:48 Drug: morphine 4 mg Route: IVP; Site: left antecubital; aa1 21:48 Follow up: Response: No adverse reaction; Pain is unchanged, physician notified; RASS: aa1 Alert and Calm (0) 22:00 Drug: fentaNYL (PF) 50 mcg Route: IVP; Site: left antecubital; aa1 23:00 Follow up: Response: No adverse reaction; Pain is decreased; RASS: Alert and Calm (0) aa1 23:12 Drug: LevOfloxacin 500 mg Route: PO; aa1 23:12 Follow up: Response: No adverse reaction; Medication administered at discharge. aa1 Intake: 21:15 IV: 1000ml; Total: 1000ml. aa1 Outcome: 22:55 Discharge ordered by . pardeep 23:14 Discharged to home ambulatory, with family. aa1 23:14 Condition: good 23:14 Discharge instructions given to patient, family, Instructed on discharge instructions, follow up and referral plans. medication usage, Demonstrated understanding of instructions, follow-up care, medications, Prescriptions given X 4. 23:15 Patient left the ED. aa1 Signatures: Dispatcher [employer] EDMS Sally Piper RN RN aa1 Reynaldo Foreman MD MD cha Rivera, Mary mr Jaramillo, Justin jj2 Swanson, Donovan ds4 Latha Son RN RN hb McGuire, Victoria 2 Corrections: (The following items were deleted from the chart) 19:02 18:59 Presenting complaint: Child states: Right flank pain and pain with cough x 1 hb week. On Bactrim and Tylenol 3 for kidney infection. hb
--- NOTE | 2019-10-12 22:56 | EDPHYS ---
Physician Documentation [facility] Name: Neida Malhotra Age: 44 yrs Sex: Female : 1975 Arrival Date: 10/12/2019 Time: 18:35 Bed 15 Private MD: Maninder Whitehead ED Physician Reynaldo Foreman HPI: 10/12 20:32 This 44 yrs old Black Female presents to ER via Ambulatory with complaints of Abdominal pardeep Pain, Back Pain. 20:32 The patient presents with pain that is acute, with no known mechanism of injury. The pardeep symptoms are located in the right mid back. Historical: - Allergies: 19:01 PENICILLINS; hb 19:01 Flexeril; hb - PMHx: 19:01 Anxiety; Gout; Diabetes - NIDDM; Chronic lumbar disc pain; Asthma; Hypertension; hb - PSHx: 19:01 ; hb - Immunization history:: Adult Immunizations up to date. - Social history:: Smoking status: Patient/guardian denies using tobacco. - Ebola Screening: : No symptoms or risks identified at this time. ROS: 20:32 Constitutional: Negative for fever, chills, and weight loss, Eyes: Negative for injury, pardeep pain, redness, and discharge, ENT: Negative for injury, pain, and discharge, Neck: Negative for injury, pain, and swelling, Cardiovascular: Negative for chest pain, palpitations, and edema, Respiratory: Negative for shortness of breath, cough, wheezing, and pleuritic chest pain, Back: Negative for injury and pain, : Negative for injury, bleeding, discharge, and swelling, MS/Extremity: Negative for injury and deformity, Skin: Negative for injury, rash, and discoloration, Neuro: Negative for headache, weakness, numbness, tingling, and seizure, Psych: Negative for depression, anxiety, suicide ideation, homicidal ideation, and hallucinations, Allergy/Immunology: Negative for hives, rash, and allergies, Endocrine: Negative for neck swelling, polydipsia, polyuria, polyphagia, and marked weight changes, Hematologic/Lymphatic: Negative for swollen nodes, abnormal bleeding, and unusual bruising. 20:32 Abdomen/GI: Positive for abdominal pain, vomiting, of the epigastric area and right upper quadrant. 20:32 Back: Positive for pain at rest, pain with movement, flank pain, on the right, radiated pain. Exam: 20:32 Constitutional: This is a well developed, well nourished patient who is awake, alert, pardeep and in no acute distress. Head/Face: Normocephalic, atraumatic. Eyes: Pupils equal round and reactive to light, extra-ocular motions intact. Lids and lashes normal. Conjunctiva and sclera are non-icteric and not injected. Cornea within normal limits. Periorbital areas with no swelling, redness, or edema. ENT: Nares patent. No nasal discharge, no septal abnormalities noted. Tympanic membranes are normal and external auditory canals are clear. Oropharynx with no redness, swelling, or masses, exudates, or evidence of obstruction, uvula midline. Mucous membranes moist. Neck: Trachea midline, no thyromegaly or masses palpated, and no cervical lymphadenopathy. Supple, full range of motion without nuchal rigidity, or vertebral point tenderness. No Meningismus. Chest/axilla: Normal chest wall appearance and motion. Nontender with no deformity. No lesions are appreciated. Cardiovascular: Regular rate and rhythm with a normal S1 and S2. No gallops, murmurs, or rubs. Normal PMI, no JVD. No pulse deficits. Respiratory: Lungs have equal breath sounds bilaterally, clear to auscultation and percussion. No rales, rhonchi or wheezes noted. No increased work of breathing, no retractions or nasal flaring. Back: No spinal tenderness. No costovertebral tenderness. Full range of motion. Skin: Warm, dry with normal turgor. Normal color with no rashes, no lesions, and no evidence of cellulitis. MS/ Extremity: Pulses equal, no cyanosis. Neurovascular intact. Full, normal range of motion. Neuro: Awake and alert, GCS 15, oriented to person, place, time, and situation. Cranial nerves II-XII grossly intact. Motor strength 5/5 in all extremities. Sensory grossly intact. Cerebellar exam normal. Normal gait. Psych: Awake, alert, with orientation to person, place and time. Behavior, mood, and affect are within normal limits. 20:32 Abdomen/GI: Inspection: distension, Bowel sounds: normal, Palpation: moderate abdominal tenderness, in the epigastric area and right upper quadrant. Vital Signs: 19:01 BP 149 / 89; Pulse 90; Resp 20; Temp 97.9; Pulse Ox 100% on R/A; Weight 154.22 kg; hb Height 5 ft. 2 in. (157.48 cm); Pain 10/10; 21:10 BP 138 / 97; Pulse 72; Resp 20; Pulse Ox 100% on R/A; Pain 10/10; aa1 22:15 BP 142 / 88; Pulse 75; Resp 18; Pulse Ox 99% on R/A; Pain 8/10; aa1 23:00 BP 133 / 81; Pulse 76; Resp 18; Temp 98.1; Pulse Ox 100% on R/A; Pain 2/10; aa1 19:01 Body Mass Index 62.19 (154.22 kg, 157.48 cm) hb MDM: 19:17 Patient medically screened. [facility] 20:32 Data reviewed: vital signs, nurses notes, lab test result(s), EKG, radiologic studies, [facility] CT scan, plain films, ultrasound. 10/12 20:32 Order name: Basic Metabolic Panel; Complete Time: 21:31 [facility] 10/12 20:32 Order name: CBC with Diff; Complete Time: 21:31 [facility] 10/12 20:32 Order name: LFT's; Complete Time: 21:31 [facility] 10/12 20:32 Order name: Magnesium; Complete Time: 21:31 [facility] 10/12 20:32 Order name: NT PRO-BNP; Complete Time: 21:31 [facility] 10/12 20:32 Order name: PT-INR; Complete Time: 21:31 [facility] 10/12 20:32 Order name: Troponin (emerg Dept Use Only); Complete Time: 21:31 [facility] 10/12 20:32 Order name: XRAY Chest (1 view) [facility] 10/12 20:32 Order name: Lipase; Complete Time: 21:31 [facility] 10/12 20:32 Order name: US Abdomen Limited [facility] 10/12 21:59 Order name: Urine Microscopic Only; Complete Time: 22:53 ds4 10/12 21:59 Order name: Urine Dipstick--Ancillary (enter results); Complete Time: 22:53 ds4 10/12 21:59 Order name: Urine --Ancillary (enter results); Complete Time: 22:53 ds4 10/12 22:21 Order name: Urine Culture [facility] 10/12 20:32 Order name: EKG; Complete Time: 20:32 [facility] 10/12 20:32 Order name: Cardiac monitoring; Complete Time: 21:58 [facility] 10/12 20:32 Order name: EKG - Nurse/Tech; Complete Time: 21:58 [facility] 10/12 20:32 Order name: IV Saline Lock; Complete Time: 20:36 [facility] 10/12 20:32 Order name: Labs collected and sent; Complete Time: 20:36 [facility] 10/12 20:32 Order name: O2 Per Protocol; Complete Time: 20:36 [facility] 10/12 20:32 Order name: O2 Sat Monitoring; Complete Time: 20:36 [facility] 10/12 20:32 Order name: Urine Dipstick-Ancillary (obtain specimen); Complete Time: 21:54 [facility] 10/12 20:32 Order name: Urine Test (obtain specimen); Complete Time: 21:54 [facility] 10/12 20:32 Order name: CT Abd/Pelvis - IV Contrast Only pardeep Administered Medications: 20:45 Drug: NS 0.9% 1000 ml Route: IV; Rate: 1 bolus; Site: left antecubital; aa1 21:15 Follow up: IV Status: Completed infusion; IV Intake: 1000ml aa1 20:45 Drug: Pepcid 20 mg Route: IVP; Site: left antecubital; aa1 21:45 Follow up: Response: No adverse reaction aa1 20:46 Drug: Zofran 4 mg Route: IVP; Site: left antecubital; aa1 21:46 Follow up: Response: No adverse reaction aa1 20:48 Drug: morphine 4 mg Route: IVP; Site: left antecubital; aa1 21:48 Follow up: Response: No adverse reaction; Pain is unchanged, physician notified; RASS: aa1 Alert and Calm (0) 22:00 Drug: fentaNYL (PF) 50 mcg Route: IVP; Site: left antecubital; aa1 23:00 Follow up: Response: No adverse reaction; Pain is decreased; RASS: Alert and Calm (0) aa1 23:12 Drug: LevOfloxacin 500 mg Route: PO; aa1 23:12 Follow up: Response: No adverse reaction; Medication administered at discharge. aa1 Disposition: 10/12/19 22:55 Discharged to Home. Impression: Abdominal tenderness, Type 2 diabetes mellitus, Obesity, unspecified, Urinary tract infection, site not specified. - Condition is Stable. - Discharge Instructions: Abdominal Pain, Adult, Type 2 Diabetes Mellitus, Diagnosis, Adult, Obesity, Adult, Urinary Tract Infection, Adult, Type 2 Diabetes Mellitus, Diagnosis, Adult, [id number], Obesity, Adult, [id number], Type 2 Diabetes Mellitus, Self Care, Adult, Type 2 Diabetes Mellitus, Self Care, Adult, [id number]. - Prescriptions for Levaquin 250 mg Oral Tablet - take 1 tablet by ORAL route once daily for 7 days; 7 tablet. Bentyl 20 mg Oral Tablet - take 1 tablet by ORAL route every 6 hours As needed; 20 tablet. Pepcid 20 mg Oral Tablet - take 1 tablet by ORAL route every 12 hours for 10 days; 20 tablet. Zofran 4 mg Oral Tablet - take 1 tablet by ORAL route every 12 hours As needed; 20 tablet. - Medication Reconciliation Form, Thank You Letter, Antibiotic Education, Prescription Opioid Use form. - Follow up: Maninder Whitehead MD; When: 2 - 3 days; Reason: Recheck today's complaints, Continuance of care, Re-evaluation by your physician. - Problem is new. - Symptoms have improved. Signatures: Dispatcher [employer] EDMS Sally Piper RN RN aa1 Reynaldo Foreman MD MD cha Baxter, Heather, RN RN Corrections: (The following items were deleted from the chart) 22:55 22:55 10/12/2019 22:55 Discharged to Home. Impression: Abdominal tenderness; Type 2 pardeep diabetes mellitus; Obesity, unspecified. Condition is Stable. Forms are Medication Reconciliation Form, Thank You Letter, Antibiotic Education, Prescription Opioid Use. Follow up: Maninder Whitehead; When: 2 - 3 days; Reason: Recheck today's complaints, Continuance of care, Re-evaluation by your physician. Problem is new. Symptoms have improved. [facility] 23:15 22:55 10/12/2019 22:55 Discharged to Home. Impression: Abdominal tenderness; Type 2 aa1 diabetes mellitus; Obesity, unspecified; Urinary tract infection, site not specified. Condition is Stable. Forms are Medication Reconciliation Form, Thank You Letter, Antibiotic Education, Prescription Opioid Use. Follow up: Maninder Whitehead; When: 2 - 3 days; Reason: Recheck today's complaints, Continuance of care, Re-evaluation by your physician. Problem is new. Symptoms have improved. pardeep
[2019-10-12] MEDS ORDERED: levoFLOXacin 500 MG TAB ONE (23:04)
--- NOTE | 2019-10-13 08:02 | RAD REPORT ---
EXAM DESCRIPTION: US - Abdomen Exam Limited - 10/12/2019 8:52 pm CLINICAL HISTORY: Abdominal pain. COMPARISON: None. FINDINGS: The examination is markedly limited secondary to body habitus. No gross abnormality of the gallbladder seen. Biliary tree is normal caliber . IMPRESSION: Grossly normal gallbladder ultrasound
--- NOTE | 2019-10-13 08:17 | RAD REPORT ---
EXAM DESCRIPTION: Chriss Single View10/12/2019 9:29 pm CLINICAL HISTORY: Abdominal pain COMPARISON: December 2018 FINDINGS: The lungs appear clear of acute infiltrate. The heart is borderline enlarged IMPRESSION: No acute abnormalities displayed
--- NOTE | 2019-10-13 08:18 | EKG ---
Test Date: 2019-10-12 Test Time: 21:08:58 Physician Asst: DARCIE MEASUREMENT RESULTS: Intervals: Rate: 57 TX: 118 QRSD: 80 QT: 454 QTc: 441 [place]: P: 62 TX: 118 QRS: 31 T: 4 INTERPRETIVE STATEMENTS: Sinus bradycardia Nonspecific T wave abnormality Abnormal ECG No previous ECG available for comparison Electronically Signed On 10-13-19 08:15:58 PLASTICS PLATER by Walter Savage
[2019-10-13 09:18] VITALS: TEMP 97.9; O2SAT 100
[2019-10-13 09:19] VITALS: BP 138/97
--- NOTE | 2019-10-13 09:54 | RAD REPORT ---
EXAM DESCRIPTION: CT - Abdomen Pelvis W Contrast - 10/12/2019 9:58 pm CLINICAL HISTORY: 44 years Female ABD PAIN TECHNIQUE: Contiguous axial images obtained through the abdomen and pelvis following intravenous con trast administration. Coronal and sagittal reformatted images provided. This CT exam was performed according to our departmental dose-optimization program, which includes on e or more of the following dose reduction techniques: automated exposure control, adjustment of the m A and/or kV according to patient size, and/or use of iterative reconstruction technique. COMPARISON: No prior exams provided for comparison. FINDINGS: There is steatosis of the liver, which is moderately enlarged without focal lesion. Mild s plenomegaly without focal lesion. The lung bases, biliary tree, gallbladder, pancreas, adrenal glands, kidneys, uterus, ovaries, urinar y bladder, and osseous structures are normal. Scattered colonic diverticuli. There is no bowel inflammation, obstruction, free intraperitoneal air, or ascites. The appendix is normal. No abdominal aortic aneurysm or retroperitoneal hemorrhage. Mild chronic degenerative changes through out the spine and at both hips. No acute fracture. Small fat-containing periumbilical hernia. IMPRESSION: Steatosis of the liver with hepatosplenomegaly. Colonic diverticulosis without diverticulitis. No bowel inflammation or obstruction. Small fat-containing periumbilical hernia. Electronically signed by: Feli Borrero MD 10/12/2019 10:15 PM ANDROID PROGRAMMER Due to temporary technical issues with the PACS/Fluency reporting system, reports are being signed by the in house radiologist as a courtesy to ensure prompt reporting. The interpreting radiologist is f ully responsible for the content of the report.
== END 2019-10-12 23:15 | disposition home or self-care (01) ==
LOC: ER 18:32
DX: N39.0 Urinary tract infection, site not specified (principal); E11.9 Type 2 diabetes mellitus without complications; E66.9 Obesity, unspecified; I10 Essential (primary) hypertension; Z88.0 Allergy status to penicillin; Z88.8 Allergy status to other drugs, medicaments and biological substances
CPT/HCPCS: 87088; 85025; 87086; 80048; 36415; 83735; 81025; 85610; 80076; 84484; 83690; 83880; 74177; 71045; 76705; Q9967; J3010; J7030; J2405; 81003; 81015; 93005

== ENCOUNTER 2019-10-25 19:40 | Emergency (ER) | payer OTHER ==
--- OUTSIDE RECORDS SUMMARY | 2019-10-25 19:43 | XMS REPORT ---
:1975 [facility] Address [address] [place] [address] [place] [id number] Care Team Providers Name Role Phone Unavailable Unavailable Unavailable Problems This patient has no known problems. Allergies, Adverse Reactions, Alerts This patient has no known allergies or adverse reactions. Medications This patient has no known medications.
[2019-10-25] MEDS ORDERED: KETOROLAC 30 MG/ML INJ ONE (20:39)
[2019-10-25 21:04] LABS: Urine Bacteria 20-50 /HPF (<20); Urine Culture Reflex Order NOT NEEDED
[2019-10-25 21:06] LABS: Urine Blood TRACE (NEG); Urine Glucose TRACE (NEG); Urine Protein 1+ (NEG); Urine Specific Gravity >1.030 (1.005-1.030); Urine pH 5.5 (5.0-7.0)
--- NOTE | 2019-10-25 21:13 | ER ---
Nurse's Notes [facility] Name: Neida Malhotra Age: 44 yrs Sex: Female : 1975 Arrival Date: 10/25/2019 Time: 19:42 Bed 19 Private MD: Diagnosis: Urinary tract infection, site not specified Presentation: 10/25 19:44 Presenting complaint: Patient states: Seen here 2 weeks ago for same complaint; "I was lp1 diagnosed with an infection in my right kidney and if feels like it's traveled down there cause it hurts"; States vaginal/pelvic pain, denies any vaginal discharge. Transition of care: patient was not received from another setting of care. Onset of symptoms was October 25, 2019. Risk Assessment: Do you want to hurt yourself or someone else? Patient reports no desire to harm self or others. Initial Sepsis Screen: Does the patient meet any 2 criteria? No. Patient's initial sepsis screen is negative. Does the patient have a suspected source of infection? No. Patient's initial sepsis screen is negative. Care prior to arrival: None. 19:44 Method Of Arrival: Wheelchair lp1 19:44 Acuity: AIDAN 3 lp1 CLINICAL PSYCHIATRIST: 19:47 LMP N/A - Irregular menses lp1 Historical: - Allergies: 19:47 PENICILLINS; lp1 19:47 Flexeril; lp1 19:47 Tylenol-Codeine #3; lp1 - Home Meds: 19:47 allopurinol 300 mg Oral tab 1 tab 2 times per day [Active]; atorvastatin Oral [Active]; lp1 Colchicine Oral [Active]; Lasix Oral [Active]; losartan Oral [Active]; metformin 1,000 mg Oral tab 1 tab 2 times per day [Active]; [place] 5-325 mg Oral tab 1 tab every 4-6 hours [Active]; Xanax Oral [Active]; - PMHx: 19:47 Anxiety; Asthma; Chronic lumbar disc pain; Diabetes - NIDDM; Gout; Hypertension; lp1 - PSHx: 19:47 None; lp1 - Immunization history:: Adult Immunizations up to date. - Social history:: Smoking status: Patient/guardian denies using tobacco. - Ebola Screening: : No symptoms or risks identified at this time. Screenin:49 Abuse screen: Denies threats or abuse. Denies injuries from another. Nutritional lp1 screening: No deficits noted. Tuberculosis screening: No symptoms or risk factors identified. 20:13 Fall Risk None identified. Assessment: 20:11 General: Appears in no apparent distress. Behavior is calm, cooperative, appropriate wh for age. Pain: Complains of pain in suprapubic area Pain radiates to back Pain currently is 6 out of 10 on a pain scale. Neuro: Level of Consciousness is awake, alert, obeys commands, Oriented to person, place, time, situation, Appropriate for age. Cardiovascular: Heart tones S1 S2. Respiratory: Airway is patent Respiratory effort is even, unlabored, Respiratory pattern is regular, symmetrical, Breath sounds are clear bilaterally. GI: Abdomen is flat, Bowel sounds present X 4 quads. Abd is soft and non tender X 4 quads. : Reports burning with urination. EENT: No signs and/or symptoms were reported regarding the EENT system. Derm: Skin is intact, is healthy with good turgor, Skin is pink, warm \\T\\ dry. normal. Musculoskeletal: Circulation, motion, and sensation intact. 21:18 Reassessment: Patient appears in no apparent distress at this time. No changes from previously documented assessment. Patient and/or family updated on plan of care and expected duration. Pain level reassessed. Patient is alert, oriented x 3, equal unlabored respirations, skin warm/dry/pink. Vital Signs: 19:47 BP 140 / 90; Pulse 97; Resp 20; Temp 98.5(O); Pulse Ox 99% on R/A; Weight 154.22 kg lp1 (R); Height 5 ft. 2 in. (157.48 cm); Pain 7/10; 21:18 BP 125 / 63; Pulse 84; Resp 18; Pulse Ox 98% on R/A; wh 19:47 Body Mass Index 62.19 (154.22 kg, 157.48 cm) lp1 ED Course: 19:42 Patient arrived in ED. cl3 19:46 Triage completed. lp1 19:46 Arm band placed on right wrist. lp1 19:50 Benny Landin is Primary Nurse. wh 19:52 Valerie Lopez FNP-C [facility]. snw 19:52 Reynaldo Foreman MD is Attending Physician. snw 20:13 Patient has correct armband on for positive identification. Bed in low position. Call light in reach. Side rails up X 1. Pulse ox on. NIBP on. 21:32 No provider procedures requiring assistance completed. Patient did not have IV access during this emergency room visit. Administered Medications: 20:44 Drug: TORadol 60 mg Route: IM; Site: right gluteus; 21:17 Follow up: Response: No adverse reaction 21:16 Drug: Doxycycline 100 mg Route: PO; 21:18 Follow up: Response: No adverse reaction Outcome: 21:12 Discharge ordered by MD. [facility] 21:32 Discharged to home ambulatory, with family. 21:32 Condition: stable 21:32 Discharge instructions given to patient, family, Instructed on discharge instructions, follow up and referral plans. medication usage, POC UTI and HTN Demonstrated understanding of instructions, follow-up care, medications, POC Prescriptions given X 2. 21:33 Patient left the ED. Signatures: Valerie Lopez, FORESTRY CONTRACTOR-C FORESTRY CONTRACTOR-Csnw Luz Bowie, RN RN lp1 Benny Landin Charde cl3
--- NOTE | 2019-10-25 21:13 | EDPHYS ---
Physician Documentation [facility] Name: Neida Malhotra Age: 44 yrs Sex: Female : 1975 Arrival Date: 10/25/2019 Time: 19:42 Bed 19 Private MD: ED Physician Reynaldo Foreman HPI: 10/25 20:41 This 44 yrs old Black Female presents to ER via Wheelchair with complaints of Abdominal snw Pain. 20:41 The patient presents with abdominal pain in the lower abdomen. Onset: The snw symptoms/episode began/occurred suddenly, 3 day(s) ago, and became persistent. The symptoms do not radiate. Associated signs and symptoms: none. The symptoms are described as crampy. Severity of pain: At its worst the pain was moderate severe. The patient has experienced a previous episode, approximately 2 weeks ago. It is unknown whether or not the patient has recently seen a physician. 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 - Irregular menses lp1 Historical: - Allergies: 19:47 PENICILLINS; lp1 19:47 Flexeril; lp1 19:47 Tylenol-Codeine #3; lp1 - Home Meds: 19:47 allopurinol 300 mg Oral tab 1 tab 2 times per day [Active]; atorvastatin Oral [Active]; lp1 Colchicine Oral [Active]; Lasix Oral [Active]; losartan Oral [Active]; metformin 1,000 mg Oral tab 1 tab 2 times per day [Active]; [place] 5-325 mg Oral tab 1 tab every 4-6 hours [Active]; Xanax Oral [Active]; - PMHx: 19:47 Anxiety; Asthma; Chronic lumbar disc pain; Diabetes - NIDDM; Gout; Hypertension; lp1 - PSHx: 19:47 None; lp1 - Immunization history:: Adult Immunizations up to date. - Social history:: Smoking status: Patient/guardian denies using tobacco. - Ebola Screening: : No symptoms or risks identified at this time. ROS: 20:39 Constitutional: Negative for fever, chills, and weight loss, Eyes: Negative for injury, snw pain, redness, and discharge, ENT: Negative for injury, pain, and discharge, Neck: Negative for injury, pain, and swelling, Cardiovascular: Negative for chest pain, palpitations, and edema, Respiratory: Negative for shortness of breath, cough, wheezing, and pleuritic chest pain, Back: Negative for injury and pain, : Negative for injury, bleeding, discharge, and swelling, MS/Extremity: Negative for injury and deformity, Skin: Negative for injury, rash, and discoloration, Neuro: Negative for headache, weakness, numbness, tingling, and seizure, Psych: Negative for depression, anxiety, suicide ideation, homicidal ideation, and hallucinations. 20:39 Abdomen/GI: Positive for abdominal pain. 20:39 : Positive for pelvic pain, of the abdomen and pelvis. Exam: 20:39 Head/Face: Normocephalic, atraumatic. Eyes: Pupils equal round and reactive to light, snw extra-ocular motions intact. Lids and lashes normal. Conjunctiva and sclera are non-icteric and not injected. Cornea within normal limits. Periorbital areas with no swelling, redness, or edema. ENT: Nares patent. No nasal discharge, no septal abnormalities noted. Tympanic membranes are normal and external auditory canals are clear. Oropharynx with no redness, swelling, or masses, exudates, or evidence of obstruction, uvula midline. Mucous membranes moist. Neck: Trachea midline, no thyromegaly or masses palpated, and no cervical lymphadenopathy. Supple, full range of motion without nuchal rigidity, or vertebral point tenderness. No Meningismus. Chest/axilla: Normal chest wall appearance and motion. Nontender with no deformity. No lesions are appreciated. Cardiovascular: Regular rate and rhythm with a normal S1 and S2. No gallops, murmurs, or rubs. Normal PMI, no JVD. No pulse deficits. Respiratory: Lungs have equal breath sounds bilaterally, clear to auscultation and percussion. No rales, rhonchi or wheezes noted. No increased work of breathing, no retractions or nasal flaring. Back: No spinal tenderness. No costovertebral tenderness. Full range of motion. Skin: Warm, dry with normal turgor. Normal color with no rashes, no lesions, and no evidence of cellulitis. MS/ Extremity: Pulses equal, no cyanosis. Neurovascular intact. Full, normal range of motion. Neuro: Awake and alert, GCS 15, oriented to person, place, time, and situation. Cranial nerves II-XII grossly intact. Motor strength 5/5 in all extremities. Sensory grossly intact. Cerebellar exam normal. Normal gait. Psych: Awake, alert, with orientation to person, place and time. Behavior, mood, and affect are within normal limits. 20:39 Constitutional: The patient appears alert, obese, uncomfortable. 20:39 Abdomen/GI: Inspection: obese Bowel sounds: normal, Palpation: mild abdominal tenderness, in the right lower quadrant and left lower quadrant. Vital Signs: 19:47 BP 140 / 90; Pulse 97; Resp 20; Temp 98.5(O); Pulse Ox 99% on R/A; Weight 154.22 kg lp1 (R); Height 5 ft. 2 in. (157.48 cm); Pain 7/10; 21:18 BP 125 / 63; Pulse 84; Resp 18; Pulse Ox 98% on R/A; wh 19:47 Body Mass Index 62.19 (154.22 kg, 157.48 cm) lp1 MDM: 19:54 Patient medically screened. pardeep 21:10 Data reviewed: vital signs, nurses notes, lab test result(s). Data interpreted: Pulse snw oximetry: on room air is 99 %. Interpretation: normal. Counseling: I had a detailed discussion with the patient and/or guardian regarding: the historical points, exam findings, and any diagnostic results supporting the discharge/admit diagnosis, the presence of at least one elevated blood pressure reading (>120/80) during this emergency department visit, lab results, the need for outpatient follow up, to return to the emergency department if symptoms worsen or persist or if there are any questions or concerns that arise at home. Special discussion: Based on the patient's Hx, exam, and Dx evaluation, there is no indication for emergent surgery or inpatient Tx. It is understood by the patient/guardian that if the Sx's persist or worsen they need to return immediately for re-evaluation. Based on the history and exam findings, there is no indication for further emergent testing or inpatient evaluation. I discussed with the patient/guardian the need to see the primary care provider for further evaluation of the symptoms. 10/25 19:57 Order name: Urine Culture [facility] 10/25 19:57 Order name: Urine Microscopic Only; Complete Time: 21:08 [facility] 10/25 20:43 Order name: Urine Dipstick--Ancillary (enter results); Complete Time: 21:08 mw2 10/25 20:43 Order name: Urine --Ancillary (enter results); Complete Time: 21:08 mw2 10/25 19:57 Order name: Urine Dipstick-Ancillary (obtain specimen); Complete Time: 20:34 snw 10/25 19:57 Order name: Cath; Complete Time: 20:34 snw Administered Medications: 20:44 Drug: TORadol 60 mg Route: IM; Site: right gluteus; 21:17 Follow up: Response: No adverse reaction 21:16 Drug: Doxycycline 100 mg Route: PO; 21:18 Follow up: Response: No adverse reaction Disposition: 10/26 06:40 Co-signature as Attending Physician, Reynaldo Foreman MD I agree with the assessment and pardeep plan of care. Disposition: 10/25/19 21:12 Discharged to Home. Impression: Urinary tract infection, site not specified. - Condition is Stable. - Discharge Instructions: Hypertension, Urinary Tract Infection, Adult, Rehydration, Adult. - Prescriptions for Doxycycline Hyclate 100 mg Oral Tablet - take 1 tablet by ORAL route every 12 hours; 20 tablet. promethazine 25 mg Oral Tablet - take 1 tablet by ORAL route every 6 hours As needed; 20 tablet. - Medication Reconciliation Form, Thank You Letter, Antibiotic Education, Prescription Opioid Use form. - Follow up: Emergency Department; When: As needed; Reason: Worsening of condition. Follow up: Private Physician; When: 1 - 2 days; Reason: Recheck today's complaints, Continuance of care, Re-evaluation by your physician. Signatures: Dispatcher [employer] Reynaldo العراقي MD MD cha Therrien, Shelly, SASH FINISHER-C SASH FINISHER-Csnw Luz Bowie, RN RN lp1 Benny Landin Corrections: (The following items were deleted from the chart) 10/25 21:33 21:12 10/25/2019 21:12 Discharged to Home. Impression: Urinary tract infection, site wh not specified. Condition is Stable. Forms are Medication Reconciliation Form, Thank You Letter, Antibiotic Education, Prescription Opioid Use. Follow up: Emergency Department; When: As needed; Reason: Worsening of condition. Follow up: Private Physician; When: 1 - 2 days; Reason: Recheck today's complaints, Continuance of care, Re-evaluation by your physician. snw
[2019-10-25] MEDS ORDERED: DOXYCYCLINE 100 MG CAP PO ONE (21:16)
[2019-10-25 23:31] VITALS: TEMP 98.5
[2019-10-25 23:32] VITALS: BP 125/63; O2SAT 98
== END 2019-10-25 21:33 | disposition home or self-care (01) ==
LOC: ER 19:40
DX: N39.0 Urinary tract infection, site not specified (principal); I10 Essential (primary) hypertension; E11.9 Type 2 diabetes mellitus without complications; F41.9 Anxiety disorder, unspecified; J45.909 Unspecified asthma, uncomplicated; Z88.0 Allergy status to penicillin; Z88.5 Allergy status to narcotic agent; Z88.6 Allergy status to analgesic agent
CPT/HCPCS: 81003; 81015; 81025; 87086; 87088; 96372; 99283

== ENCOUNTER → 2023-11-27 | Emergency (ER) | payer OTHER ==
[~2023-11-27] MED LIST: HYDROCODONE/APAP 5/325 MG TAB ONE; levoFLOXacin 750 MG TAB ONE
[2023-11-27 12:48] LABS: Absolute Lymphocytes (CBC) 2.8 K/uL (0.7-4.9); Hematocrit 37.6 % (36.0-45.0); Lymphocytes % 30.3 % (15.3-44.8); MCV 85.4 fL (80-100); MPV 7.6 fL (7.6-11.3); Platelets 279 thou/uL (152-406)
[2023-11-27 12:52] LABS: Specific Gravity 1.019 (1.005-1.030); Urine Bacteria None Seen /HPF (<20); Urine Bilirubin NEGATIVE (Negative); Urine Blood Negative (Negative); Urine Clarity Turbid (Clear); Urine Color Dark-Yellow (Yellow); Urine Glucose NEGATIVE (Negative); Urine Mucus Slight /HPF (None Seen); Urine Protein NEGATIVE (Negative); Urine RBC 21-50 /HPF (None Seen); Urine Urobilinogen Normal (Normal); Urine pH 5.5 (5.0-7.0)
[2023-11-27 12:54] LABS: Specific Gravity 1.019 (1.005-1.030)
--- NOTE | 2023-11-27 13:44 | RAD REPORT ---
EXAM DESCRIPTION: CT - Abdomen Pelvis W Contrast - 11/27/2023 1:15 pm CLINICAL HISTORY: back pain COMPARISON: Abdomen Pelvis W Contrast dated 10/12/2019; CT ABD PELVIS W CONTRAST dated 02/14/2015 TECHNIQUE: Thin cut axial CT imaging of the abdomen and pelvis was performed following intravenous a dministration of 100 mL Isovue 300. Multiplanar reformats were generated and reviewed. All CT scans are performed using dose optimization technique as appropriate and may include automated exposure control or mA/KV adjustment according to patient size. FINDINGS: No suspicious findings in the lung bases. The liver shows diffuse parenchymal hypoattenuation suggesting steatosis. Adrenal glands, spleen, and pancreas show no suspicious findings. Gallbladder and biliary tree are also without suspicious findi ng. Symmetric renal function is seen with no hydronephrosis or suspicious renal mass. No dilated bowel loops or bowel wall thickening. No free air, free fluid or inflammatory stranding. N o hernia, mass or bulky lymphadenopathy. The urinary bladder is without significant finding. Right ad nexal 3.6 cm cyst with marginal wall calcification, mildly increased in size but otherwise maintains benign CT features. Appendix is unremarkable. No suspicious bony findings. IMPRESSION: No acute intra-abdominal process. Diffuse hepatic steatosis. Likely benign right adnexal cyst as above.
--- NOTE | 2023-11-27 14:16 | ER ---
Nurse's Notes [facility] Name: Neida Malhotra Age: 48 yrs Sex: Female : 1975 Arrival Date: 11/27/2023 Time: 11:24 Bed 13 Private MD: Diagnosis: UTI/ Urinary tract infection, site not specified;Flank pain Presentation: 11/27 11:34 Chief complaint: Patient states: started off as a UTI the day after Juda, now has iw right back pain X 2 days, urinary s/s has improved, has been on Macrobid antibiotic since yesterday. Coronavirus screen: At this time, the client does not indicate any symptoms associated with coronavirus-19. Ebola Screen: Patient negative for fever greater than or equal to 101.5 degrees Fahrenheit, and additional compatible Ebola Virus Disease symptoms Patient denies exposure to infectious person. Patient denies travel to an Ebola-affected area in the 21 days before illness onset. No symptoms or risks identified at this time. Initial Sepsis Screen: Does the patient have a suspected source of infection?. Initial Sepsis Screen: Does the patient meet any 2 criteria? No. Patient's initial sepsis screen is negative. Risk Assessment: Do you want to hurt yourself or someone else? Patient reports no desire to harm self or others. Onset of symptoms was November 22, 2023. 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 - Social history:: Smoking status: Patient denies any tobacco usage or history of. Screenin:45 [facility] ED Fall Risk Assessment (Adult) History of falling in the last 3 months, me1 including since admission No falls in past 3 months (0 pts) Confusion or Disorientation No (0 pts) Intoxicated or Sedated No (0 pts) Impaired Gait No (0 pts) Mobility Assist Device Used No (0 pt) Altered Elimination No (0 pt) Score/Fall Risk Level 0 - 2 = Low Risk Maintained a safe environment, Hourly rounding (assess needs \T\ fall precautionary measures) done, Used ambulatory aids as needed (educated on \T\ assisted with). Abuse screen: Denies threats or abuse. Nutritional screening: No deficits noted. Tuberculosis screening: No symptoms or risk factors identified. Assessment: 12:15 General: Appears uncomfortable, ill, well groomed, well developed, well nourished, me1 Behavior is calm, cooperative, appropriate for age, Reports started off as a UTI the day after Juda, now has right back pain X 2 days, urinary s/s has improved, has been on Macrobid antibiotic since yesterday. Pain: Complains of pain in right mid back. Neuro: 12:15 Pain: Pain does not radiate. Pain currently is 7 out of 10 on a pain scale. Quality of me1 pain is described as sharp, Pain began gradually, 2-3 days ago. Is continuous. Neuro: Level of Consciousness is awake, alert, obeys commands, Oriented to person, place, time, situation, Appropriate for age. Cardiovascular: Capillary refill < 3 seconds Patient's skin is warm and dry. Respiratory: Airway is patent Respiratory effort is even, unlabored, Respiratory pattern is regular, symmetrical. : Reports pain in right flank(s). Vital Signs: 11:34 BP 150 / 90; Pulse 73; Resp 16; Temp 98; Pulse Ox 100% on R/A; Weight 136.53 kg; Height iw 5 ft. 2 in. ; Pain 7/10; 12:07 BP 120 / 78; Pulse 68; Resp 17; Pulse Ox 100% on R/A; me1 12:45 BP 149 / 94; Pulse 69; Resp 16; Pulse Ox 100% on R/A; me1 14:20 BP 122 / 82; Pulse 71; Resp 17; Pulse Ox 99% on R/A; me1 11:34 Body Mass Index 55.05 (136.53 kg, 157.48 cm) iw 11:34 Pain Scale: Adult iw ED Course: 11:28 Patient arrived in ED. ts1 11:28 Royer Trotter MD is Attending Physician. kdr 11:37 Triage completed. iw 11:37 Arm band placed on. iw 12:08 Jacklyn Virk, RN is Primary Nurse. me1 13:45 Patient has correct armband on for positive identification. Bed in low position. Call me1 light in reach. Side rails up X 1. Provided Education on: POC. Verbalized understanding. 13:45 No provider procedures requiring assistance completed. me1 14:35 IV discontinued, intact, bleeding controlled, No redness/swelling at site. Pressure me1 dressing applied. Administered Medications: 12:54 Drug: Hydrocodone-Acetaminophen PO (7.5 mg-325 mg) 1 tabs PO once Route: PO; me1 13:48 Follow up: Response: No adverse reaction; Pain is decreased me1 14:20 Drug: LevOfloxacin PO 750 mg PO once Route: PO; me1 14:21 Follow up: Response: No adverse reaction me1 Medication: 14:21 VIS not applicable for this client. me1 Outcome: 14:16 Discharge ordered by MD. kdr 14:35 Discharged to home ambulatory, me1 14:35 Condition: stable 14:35 Condition: stable 14:35 Discharge instructions given to patient, Instructed on discharge instructions, follow up and referral plans. Demonstrated understanding of instructions, follow-up care, 14:35 Patient left the ED. me1 Signatures: Royer Trotter MD MD kdr Norma Cameron, RN RN iw Dee Vergara [facility] ts1 Jacklyn Virk, RN RN me1 Corrections: (The following items were deleted from the chart) 13:43 11:34 Chief complaint: Patient states: started off as a UTI the day after Juda, me1 now has right back pain X 2 days, urinary s/s has improved, has been on Macrobid antibiotic since yesterday iw
--- NOTE | 2023-11-27 14:16 | EDPHYS ---
Physician Documentation [facility] Name: Neida Malhotra Age: 48 yrs Sex: Female : 1975 Arrival Date: 11/27/2023 Time: 11:24 Bed 13 Private MD: ED Physician Royer Trotter HPI: 11/27 13:06 This 48 yrs old Black Female presents to ER via Ambulatory with complaints of Back Pain.kdr 13:06 Patient states that she has had a urinary tract infection since the day after kdr [place]. She has had similar infections before. She has had prior complications including polynephritis with prior kidney infections. She has not had back pain for 2 days. The pain is in her right CVA area. She also indicates that her urinary symptoms are improving (she has been on Macrobid for 2 days) patient's not acutely appearing presently. 13:18 Onset: The symptoms/episode began/occurred gradually, 2 week(s) ago, Overall about 2 kdr weeks of illness but this last 2 days that she became worse with the back pain component. Severity of symptoms: At their worst the symptoms were mild in the emergency department the symptoms are unchanged. The patient has experienced similar episodes in the past, a few times. The patient has not recently seen a physician. 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 - Social history:: Smoking status: Patient denies any tobacco usage or history of. ROS: 13:18 Constitutional: Negative for fever, chills, and weight loss, Eyes: Negative for injury, kdr pain, redness, and discharge, Neck: Negative for injury, pain, and swelling, Cardiovascular: Negative for chest pain, palpitations, and edema, Respiratory: Negative for shortness of breath, cough, wheezing, and pleuritic chest pain, Abdomen/GI: Negative for abdominal pain, nausea, vomiting, diarrhea, and constipation, : Negative for injury, bleeding, discharge, and swelling, MS/Extremity: Negative for injury and deformity, Skin: Negative for injury, rash, and discoloration, Neuro: Negative for headache, weakness, numbness, tingling, and seizure activity. Psych: Negative for depression, anxiety, suicide ideation, homicidal ideation, and hallucinations, Allergy/Immunology: Negative for hives, rash, and allergies, Endocrine: Negative for neck swelling, polydipsia, polyuria, polyphagia, and marked weight changes, Hematologic/Lymphatic: Negative for swollen nodes, abnormal bleeding, and unusual bruising, 13:18 Back: Positive for pain at rest, of the right mid back, Negative for injury or acute deformity, decreased range of motion, Exam: 13:18 Constitutional: This is a well developed, well nourished patient who is awake, alert, kdr and in no acute distress. Head/Face: Normocephalic, atraumatic. Eyes: Pupils equal round and reactive to light, extra-ocular motions intact. Lids and lashes normal. Conjunctiva and sclera are non-icteric and not injected. Cornea within normal limits. Periorbital areas with no swelling, redness, or edema. Neck: Trachea midline, no thyromegaly or masses palpated, and no cervical lymphadenopathy. Supple, full range of motion without nuchal rigidity, or vertebral point tenderness. No Meningismus. Chest/axilla: Normal chest wall appearance and motion. Nontender with no deformity. No lesions are appreciated. Cardiovascular: Regular rate and rhythm with a normal S1 and S2. No gallops, murmurs, or rubs. Normal PMI, no JVD. No pulse deficits. Respiratory: Lungs have equal breath sounds bilaterally, clear to auscultation and percussion. No rales, rhonchi or wheezes noted. No increased work of breathing, no retractions or nasal flaring. Abdomen/GI: Soft, non-tender, with normal bowel sounds. No distension or tympany. No guarding or rebound. No evidence of tenderness throughout. Back: No spinal tenderness. No costovertebral tenderness. Full range of motion. Skin: Warm, dry with normal turgor. Normal color with no rashes, no lesions, and no evidence of cellulitis. MS/ Extremity: Pulses equal, no cyanosis. Neurovascular intact. Full, normal range of motion. Neuro: Awake and alert, GCS 15, oriented to person, place, time, and situation. Cranial nerves II-XII grossly intact. Motor strength 5/5 in all extremities. Sensory grossly intact. Cerebellar exam normal. Normal gait. Psych: Awake, alert, with orientation to person, place and time. Behavior, mood, and affect are within normal limits. Vital Signs: 11:34 BP 150 / 90; Pulse 73; Resp 16; Temp 98; Pulse Ox 100% on R/A; Weight 136.53 kg; Height iw 5 ft. 2 in. ; Pain 7/10; 12:07 BP 120 / 78; Pulse 68; Resp 17; Pulse Ox 100% on R/A; me1 12:45 BP 149 / 94; Pulse 69; Resp 16; Pulse Ox 100% on R/A; me1 14:20 BP 122 / 82; Pulse 71; Resp 17; Pulse Ox 99% on R/A; me1 11:34 Body Mass Index 55.05 (136.53 kg, 157.48 cm) iw 11:34 Pain Scale: Adult iw MDM: 13:18 Data reviewed: vital signs, nurses notes, lab test result(s), radiologic studies. kdr 14:16 Patient medically screened. kdr 11/27 12:52 Order name: Urinalysis w/ reflexes EDMS 11/27 12:54 Order name: Test, Urine EDMS 11/27 13:00 Order name: Basic Metabolic Panel EDMS 11/27 13:25 Order name: CBC with Automated Diff EDMS 11/27 13:44 Order name: CT; Complete Time: 14:14 EDMS Administered Medications: 12:54 Drug: Hydrocodone-Acetaminophen PO (7.5 mg-325 mg) 1 tabs PO once Route: PO; me1 13:48 Follow up: Response: No adverse reaction; Pain is decreased me1 14:20 Drug: LevOfloxacin PO 750 mg PO once Route: PO; me1 14:21 Follow up: Response: No adverse reaction me1 Disposition Summary: 11/27/23 14:16 Discharge Ordered Notes: Continue your antibiotics as previously prescribed. Location: Home kdr Problem: an acute exacerbation kdr Symptoms: have improved kdr Condition: Stable kdr Diagnosis - UTI/ Urinary tract infection, site not specified kdr - Flank pain kdr Followup: kdr - With: Private Physician - When: 2 - 3 days - Reason: If symptoms return, Further diagnostic work-up, Recheck today's complaints, Continuance of care, Re-evaluation by your physician Discharge Instructions: - Discharge Summary Sheet kdr - Dysuria kdr - Urinary Tract Infection, Adult, [id number] kdr Forms: - Medication Reconciliation Form kdr - Thank You Letter kdr - Antibiotic Education kdr - Patient Portal Instructions kdr - Leadership Thank You Letter kdr Signatures: Dispatcher [employer] Royer Camacho MD MD kdr Norma Cameron RN RN Jacklyn Virk RN RN me1
[2023-11-27 15:45] VITALS: BP 122/82; TEMP 98; O2SAT 99
== END ==
LOC: ER 11:24
DX: N39.0 Urinary tract infection, site not specified (principal); Z88.0 Allergy status to penicillin; Z88.5 Allergy status to narcotic agent; Z88.6 Allergy status to analgesic agent
CPT/HCPCS: 85025; 81001; 80048; 36415; 81025; 74177; 99283; Q9967

== ENCOUNTER 2024-02-29 16:11 | Emergency (ER) | payer OTHER ==
[2024-02-29] MEDS ORDERED: DIAZEPAM 5 MG TABLET ONE (17:00)
[2024-02-29] MEDS ORDERED: HYDROCODONE/APAP 5/325 MG TAB ONE (17:03)
--- NOTE | 2024-02-29 18:24 | EDPHYS ---
Physician Documentation [facility] Name: Neida Malhotra Age: 49 yrs Sex: Female : 1975 Arrival Date: 02/29/2024 Time: 16:11 Bed IW1 Private MD: ED Physician Aung Pack HPI: 02/28 18:23 This 49 yrs old Black Female presents to ER via Wheelchair with complaints of Hip Pain, ms3 Leg Pain. 18:23 49-year-old female with past medical history of anxiety, asthma, chronic lumbar disc ms3 pain, diabetes, gout, hypertension presents to the emergency department for right buttock pain that radiates down her right leg. Patient states she has previously had back injections for the symptoms 1 month ago. Patient denies bowel or bladder incontinence, saddle anesthesia, fevers, chills. Patient rates her pain a 10/10. Patient denies any alleviating or inciting factors. 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 - Infectious Disease History:: Denies. - Social history:: Smoking status: Patient denies any tobacco usage or history of. ROS: 18:23 Constitutional: Negative for fever, and chills. Neck: Negative for injury, pain, and ms3 swelling, Cardiovascular: Negative for chest pain, and palpitations. Respiratory: Negative for shortness of breath, cough, wheezing, and pleuritic chest pain, Abdomen/GI: Negative for abdominal pain, nausea, vomiting, diarrhea, and constipation, 18:23 MS/extremity: Positive for Right buttock pain radiating down right leg, Exam: 18:23 Constitutional: This is a well developed, well nourished patient who is awake, alert, ms3 and in no acute distress. Cardiovascular: Regular rate and rhythm with a normal S1 and S2. No gallops, murmurs, or rubs. Normal PMI, no JVD. No pulse deficits. Respiratory: Lungs have equal breath sounds bilaterally, clear to auscultation and percussion. No rales, rhonchi or wheezes noted. No increased work of breathing, no retractions or nasal flaring. Abdomen/GI: Soft, non-tender, with normal bowel sounds. No distension or tympany. No guarding or rebound. No evidence of tenderness throughout. 18:23 Back: pain, that is moderate, vertebral tenderness, is not appreciated, muscle spasm, is appreciated in the right low back, Vital Signs: 16:37 Resp 18; Temp 97.2; Pulse Ox 98% ; Weight 135.17 kg; Height 5 ft. 2 in. ; ph 16:43 BP 125 / 81; ph 16:37 Body Mass Index 54.50 (135.17 kg, 157.48 cm) ph MDM: 16:57 Patient medically screened. ms3 18:23 Differential diagnosis: arthritis, strain. Data reviewed: vital signs, nurses notes, ms3 and as a result, I will discharge patient. I considered the following discharge prescriptions or medication management in the emergency department Medications were administered in the Emergency Department. See MAR. Care significantly affected by the following chronic conditions: Diabetes, Hypertension. Counseling: I had a detailed discussion with the patient and/or guardian regarding the historical points, exam findings, and any diagnostic results supporting the discharge/admit diagnosis, the need for outpatient follow up, to return to the emergency department if symptoms worsen or persist or if there are any questions or concerns that arise at home. ED course: On reevaluation patient symptoms improved, patient is alert and oriented x 4, no apparent distress, nontoxic-appearing, without bowel or bladder incontinence, no saddle anesthesia present. Patient to follow-up with primary care physician in 2 to 3 days. Patient understands and agrees with plan. All questions were answered. Return precautions discussed include worsening symptoms, or any other concerns. Administered Medications: 17:01 Drug: Diazepam PO 5 mg PO once Route: PO; ph 18:30 Follow up: Response: No adverse reaction ph 17:04 Drug: HYDROcodone-acetaminophen PO 5 mg-325 mg 1 tabs PO once Route: PO; ph 18:30 Follow up: Response: No adverse reaction ph Disposition Summary: 02/29/24 18:23 Discharge Ordered Notes: Location: Home ms3 Condition: Stable ms3 Diagnosis - Sciatica, right side ms3 Followup: ms3 - With: David Lorenzo DO - When: 2 - 3 days - Reason: Recheck today's complaints Discharge Instructions: - Discharge Summary Sheet ms3 - Sciatica ms3 Forms: - Medication Reconciliation Form ms3 - Thank You Letter ms3 - Antibiotic Education ms3 - Prescription Opioid Use ms3 - Patient Portal Instructions ms3 - Leadership Thank You Letter ms3 Prescriptions: - Ibuprofen 600 mg Oral Tablet - take 1 tablet ORAL route every 6 hours As needed take with food; 30 tablet; ms3 Refills: 0, Product Selection Permitted - Skelaxin 800 mg Oral Tablet - take 1 tablet ORAL route every 8 hours As needed; 30 tablet; Refills: 0, ms3 Product Selection Permitted Signatures: Nadia Locke RN RN Aung Garcia DO DO ms3 Corrections: (The following items were deleted from the chart) 20:22 20:21 This 49 yrs old Black Female presents to ER via Wheelchair with complaints of Hip ms3 Pain, Leg Pain. ms3
--- NOTE | 2024-02-29 18:24 | ER ---
Nurse's Notes [facility] Name: Neida Malhotra Age: 49 yrs Sex: Female : 1975 Arrival Date: 02/29/2024 Time: 16:11 Bed IW1 Private MD: Diagnosis: Sciatica, right side Presentation: 02/28 16:37 Chief complaint: Patient states: R hip pain radiating down R leg that started Thursday, ph denies trauma, hx of R hip pain. Coronavirus screen: Vaccine status: Patient reports receiving the 2nd dose of the covid vaccine. Ebola Screen: No symptoms or risks identified at this time. Initial Sepsis Screen: Does the patient meet any 2 criteria? No. Patient's initial sepsis screen is negative. Does the patient have a suspected source of infection? No. Patient's initial sepsis screen is negative. Risk Assessment: Do you want to hurt yourself or someone else? Patient reports no desire to harm self or others. Onset of symptoms was February 29, 2024. 16:37 Method Of Arrival: Wheelchair ph 16:37 Acuity: AIDAN 4 ph Triage Assessment: 16:41 General: Appears in no apparent distress. uncomfortable, Behavior is calm, cooperative. ph Pain: Complains of pain in right hip Pain radiates to right leg. Neuro: Level of Consciousness is awake, alert, obeys commands, Oriented to person, place, time, situation. 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 - Infectious Disease History:: Denies. - Social history:: Smoking status: Patient denies any tobacco usage or history of. Screenin:31 [facility] ED Fall Risk Assessment (Adult) History of falling in the last 3 months, ll1 including since admission No falls in past 3 months (0 pts) Confusion or Disorientation No (0 pts) Intoxicated or Sedated No (0 pts) Impaired Gait Yes (1 pt) Mobility Assist Device Used Yes (1 pt) Altered Elimination No (0 pt) Score/Fall Risk Level 0 - 2 = Low Risk Oriented to surroundings, Hourly rounding (assess needs \T\ fall precautionary measures) done. Abuse screen: Denies threats or abuse. Nutritional screening: No deficits noted. Tuberculosis screening: No symptoms or risk factors identified. Assessment: 18:30 Reassessment: No changes from previously documented assessment. Patient and/or family ll1 updated on plan of care and expected duration. Pain level reassessed. Patient is alert, oriented x 3, equal unlabored respirations, skin warm/dry/pink. Vital Signs: 16:37 Resp 18; Temp 97.2; Pulse Ox 98% ; Weight 135.17 kg; Height 5 ft. 2 in. ; ph 16:43 BP 125 / 81; ph 16:37 Body Mass Index 54.50 (135.17 kg, 157.48 cm) ph ED Course: 16:15 Patient arrived in ED. rg4 16:20 Aung Pack DO is Attending Physician. ms3 16:39 Triage completed. ph 16:40 Arm band placed on Patient placed in waiting room, Patient notified of wait time. ph 16:59 Nadia Locke, RN is Primary Nurse. ph 18:23 David Lorenzo DO is Referral Physician. ms3 18:31 Patient has correct armband on for positive identification. Provided Education on: No ll1 drinking alcohol or driving on prescribed medications. 18:31 No provider procedures requiring assistance completed. Patient did not have IV access ll1 during this emergency room visit. Administered Medications: 17:01 Drug: Diazepam PO 5 mg PO once Route: PO; ph 18:30 Follow up: Response: No adverse reaction ph 17:04 Drug: HYDROcodone-acetaminophen PO 5 mg-325 mg 1 tabs PO once Route: PO; ph 18:30 Follow up: Response: No adverse reaction ph Medication: 16:42 VIS not applicable for this client. ph Outcome: 18:23 Discharge ordered by MD. ms3 18:31 Patient left the ED. ph 18:31 Discharged to home ambulatory, ll1 18:31 Condition: stable 18:31 Discharge instructions given to patient, Instructed on discharge instructions, follow up and referral plans. no drinking with medication, no driving heavy equipment, medication usage, Demonstrated understanding of instructions, follow-up care, medications, Prescriptions given X 2, Signatures: Nadia Locke, RN RN alexy Duffy, Genevieve rg4 Zenon Ragland RN RN ll1 Aung Pack, DO CORTEZ ms3
[2024-03-01 01:18] VITALS: BP 125/81; TEMP 97.2; O2SAT 98
== END 2024-02-29 18:31 | disposition home or self-care (01) ==
LOC: ER 16:11
DX: M54.31 Sciatica, right side (principal)
CPT/HCPCS: 99283